=== PATIENT | female | born 1940 | race Caucasian/White ===

== ENCOUNTER → 2016-04-04 | Outpatient (CLI) | payer MEDICARE, OTHER ==
[~2016-04-04] MED LIST: BP MED; CITA-48 PO; LEVO137T2 PO; MELO15TA2 PO; OMEP20TA39 PO; VITA10004 PO; ZOCO80TA PO
[2016-04-04 13:26] LABS: BLOOD GAS BASE EXCESS 2.4 mmol/L (-2-2); BLOOD GAS HCO3 27 mmol/L (22-26); BLOOD GAS O2 HGB SATURATION 92 % (90-100); BLOOD GAS OXYGEN CONTENT 16.6 Vol % (12.0-20.0); BLOOD GAS PCO2 41 mmHg (38-42); BLOOD GAS PO2 83 mmHg (61-120); BLOOD GAS TOTAL HGB 12.8 G/DL (12.0-16.0); CRITICAL VALUE NO; DRAW SITE RT RADIAL; FIO2 21 %; NUMBER OF ARTERIAL PUNCTURES 1; STAT NO; TEMP CORR TO 98.6; ULNAR PULSE PRESENT
--- NOTE | 2016-04-06 09:04 | RSPPFT ---
DATE OF PROCEDURE: 04/04/16 COMMENTS: Spirometry shows FVC of 2.1 at 39% of predicted, FEV1 of 0.9 at 40%, FEV1/FVC ratio is normal. Flow is decreased at FEF 25, FEF 50, FEF 75 and FEF 25-75. There is no significant response after acutely inhaled bronchodilator treatment. Lung volumes show residual volume is increased. TLC is normal. Diffusion capacity is markedly decreased. Flow volume loop indicates small airways obstruction. Room air arterial blood gases show pH of 7.42, PCO2 of 41, PO2 of 83, BiCarb of 27 and O2 Saturation at 92%. IMPRESSION: 1. Moderately severe obstructive lung disease mainly in the "small airways". 2. No response after bronchodilator treatment. 3. Lung volumes show mild hyperinflation. 4. Diffusion capacity is decreased. 5. Blood gases show normal oxygenation on room air.
== END ==
LOC: HRSP 12:33
PROVIDERS: ATTEND Specialist
DX: J44.9 Chronic obstructive pulmonary disease, unspecified (principal)
CPT/HCPCS: 36600; 82805; 94060; 94726; 94729

== ENCOUNTER 2017-01-03 15:28 | Observation (INO) | payer MEDICARE, OTHER ==
[~2017-01-03] VITALS: Ht 149.9 cm; Wt 75.4 kg
[2017-01-03] VITALS (10 sets, daily range): BP systolic 112–148; BP diastolic 58–85; PULSE 99–132; RESP 16–24; TEMP 97–98.7; O2SAT 91–98
[2017-01-03] MEDS ORDERED: SODIUM CHLORIDE 0.9% FLUSH 10 ML FLUSH IVF PRN (16:00)
[2017-01-03] MEDS ORDERED: RESP: ALBUTEROL 2.5 MG/IPRATROPIUM 0.5 MG NEB (SCH) NEB ONE (16:00)
[2017-01-03 16:30] LABS: AUTOMATED NEUTROPHIL # 6.8 TH/MM3 (1.8-7.7); BASOPHIL # 0.2 TH/MM3 (0-0.2); EOSINOPHIL # 0.1 TH/MM3 (0-0.4); EOSINOPHIL % 1.7 % (0.0-4.0); HEMATOCRIT 37.5 % (35.0-46.0); LYMPH % 8.6 % (9.0-44.0); LYMPHOCYTE # 0.7 TH/MM3 (1.0-4.8); MEAN CELL VOLUME 92.2 FL (80.0-100.0); MEAN CORPUSCULAR HGB CONC 32.5 % (32.0-36.0); NEUT % 83.7 % (16.0-70.0); PLATELET COUNT 223 TH/MM3 (150-450); RED BLOOD COUNT 4.06 MIL/MM3 (4.00-5.30); RED CELL DISTRIBUTION WIDTH 14.7 % (11.6-17.2); WHITE BLOOD COUNT 8.1 TH/MM3 (4.0-11.0)
[2017-01-03 16:37] LABS: HEMO FLAGS DIFF FINAL
[2017-01-03 16:38] LABS: CHLORIDE 100 MEQ/L (98-107); POTASSIUM 3.9 MEQ/L (3.5-5.1); SODIUM (NA) 135 MEQ/L (136-145)
[2017-01-03 16:42] LABS: ANION GAP 7 MEQ/L (5-15); BICARBONATE 28.5 MEQ/L (21.0-32.0); BLOOD UREA NITROGEN 18 MG/DL (7-18); MAGNESIUM 1.8 MG/DL (1.5-2.5)
[2017-01-03 16:45] LABS: ALT (GPT) 21 U/L (10-53); APTT (PATIENT) 24.6 SEC (24.3-30.1); AST (GOT) 28 U/L (15-37); GLOMERULAR FILTRATION RATE 48 ML/MIN (>89); PROTHROMBIN TIME - PATIENT 10.5 SEC (9.8-11.6)
[2017-01-03 16:46] LABS: TOTAL BILIRUBIN ADULT 0.4 MG/DL (0.2-1.0)
[2017-01-03 16:48] LABS: ALKALINE PHOSPHATASE 80 U/L (45-117); CREATINE KINASE 119 U/L (26-192)
[2017-01-03] MEDS ORDERED: DILT120C50 PO (16:56)
[2017-01-03] MEDS ORDERED: CITA40TA4 PO (16:56)
[2017-01-03] MEDS ORDERED: LEVO100T5 PO (16:56)
[2017-01-03] MEDS ORDERED: LISI10TA PO (16:56)
[2017-01-03] MEDS ORDERED: MELO15TA20 PO (16:56)
[2017-01-03] MEDS ORDERED: OMEP20TA93 PO (16:56)
[2017-01-03] MEDS ORDERED: VENTAER INH (16:56)
[2017-01-03] MEDS ORDERED: LEVO500T8 PO (16:56)
[2017-01-03] MEDS ORDERED: ZOCO80TA PO (16:56)
[2017-01-03] MEDS ORDERED: SYMB160A INH (16:56)
[2017-01-03] MEDS ORDERED: TRAZ100T10 PO (16:56)
[2017-01-03] MEDS ORDERED: IOHEXOL 350 MG/ML 10 ML VIAL (for RAD DIAG) IVCONTRAST ONE (17:09)
--- NOTE | 2017-01-03 17:19 | RADRPT ---
EXAM DATE/TIME: 01/03/2017 16:58 [facility] COMPARISON: No previous studies available for comparison. INDICATIONS : Short of breath. Evaluate for embolism. IV CONTRAST: 65 cc Omnipaque 350 (iohexol) IV RADIATION DOSE: 15.84 CTDIvol (mGy) MEDICAL HISTORY : Hypertension. Chronic obstructive pulmonary disease. Diabetes. SURGICAL HISTORY : Appendectomy. Cholecystectomy. ENCOUNTER: Initial ACUITY: 2 days PAIN SCALE: 0/10 LOCATION: chest TECHNIQUE: Volumetric scanning of the chest was performed using a pulmonary embolism protocol MIP images were re constructed. Using automated exposure control and adjustment of the mA and/or kV according to patien t size, radiation dose was kept as low as reasonably achievable to obtain optimal diagnostic quality images. DICOM format image data is available electronically for review and comparison. Follow-up recommendations for detected pulmonary nodules are based at a minimum on nodule size and pa tient risk factors according to Fleischner Society Guidelines. FINDINGS: PULMONARY ARTERIES: No filling defects are seen in the pulmonary arteries through the segmental level. LUNGS: There is no consolidation or pneumothorax . No concerning pulmonary nodule is visualized. PLEURAE: There is no pleural thickening or pleural effusion. MEDIASTINUM: There is good visualization of the great vessels of the middle mediastinum. No evidence of mediastin al or hilar adenopathy/mass. MUSCULOSKELETAL: Within normal limits for patient age. MISCELLANEOUS: The visualized upper abdominal organs demonstrate no acute abnormality. CONCLUSION: Normal examination. Extensive calcifications in the hilar regions bilaterally and of the tracheobronc hial tree Omar Hameed MD on January 03, 2017 at 17:16 Board Certified Radiologist. This report was verified electronically.
--- NOTE | 2017-01-03 17:48 | RADRPT ---
EXAM DATE/TIME: 01/03/2017 16:53 [facility] COMPARISON: No previous studies available for comparison. INDICATIONS : Cough and short of breath for several days. MEDICAL HISTORY : Hypertension. Chronic obstructive pulmonary disease. Gastroesophageal reflux disease. Rheumatoid arthritis. SURGICAL HISTORY : Appendectomy. Cholecystectomy. ENCOUNTER: Initial ACUITY: 3 days PAIN SCORE: 2/10 LOCATION: Bilateral chest FINDINGS: A single view of the chest demonstrates the lungs to be symmetrically aerated without evidence of mas s, infiltrate or effusion. The cardiomediastinal contours are unremarkable. Osseous structures are intact. CONCLUSION: Normal examination. Mild interstitial prominence throughout the lungs. Omar Hameed MD on January 03, 2017 at 17:46 Board Certified Radiologist. This report was verified electronically.
[2017-01-03] MEDS ORDERED: PRED5TAB PO (17:51)
[2017-01-03] MEDS ORDERED: predniSONE 20 MG TAB PO ONE (18:15)
--- NOTE | 2017-01-03 18:24 | PD ---
HPI Chief Complaint: Respiratory Symptoms Time Seen by Provider: 15:43 Travel History International Travel<30 days: No Contact w/Intl Traveler<30days: No Traveled to known affect area: No History of Present Illness HPI Patient is a 76 year old female presents to the ER for evaluation of SOB. Has a history of COPD and is not on home oxygen. She is taking prednisone 5mg PO daily at baseline and her PCP increased it to 20mg today and started her on levaquin. She states for the past few days she is SOB and has dry cough. No fever, no chest pain. Has been taking inhaler without relief. States took the first dose of levaquin and prednisone today and still feeling SOB so came into ER. Symptoms moderate, over the past few days, gradually worsening. Context as above. PFSH Past Medical History Arthritis: Yes (RHEUMATOID) High Cholesterol: Yes COPD: Yes Diabetes: Yes Patient Takes Glucophage: Yes Diminished Hearing: No GERD: Yes Hypertension: Yes Respiratory: Yes (BRONCHIECTASIS) Immunizations Current: No Pneumonia: Yes Thyroid Disease: Yes Triglycerides - High: Yes Tetanus Vaccination: < 5 Years Influenza Vaccination: No PNEUMOCCOCAL Vaccine (Year): 2010 ?: Not Menopausal: Yes Tubal Ligation: Yes Past Surgical History Appendectomy: Yes Cholecystectomy: Yes Eye Surgery: Yes (cataracts) Gynecologic Surgery: Yes (breast lumpectomy bilat) Joint Replacement: Yes (THOMAS KNEE 01/23) Social History Alcohol Use: Yes (SOCIALLY-beer) Tobacco Use: No (quit in 1991 smoked 2 ppd) Substance Use: No Allergies-Medications (Allergen,Severity, Reaction): Coded Allergies: penicillin G (Unverified Allergy, Unknown, rash, 09/27/16) Reported Meds & Prescriptions Reported Meds & Active Scripts Active Reported Prednisone 5 Mg Tab 5 Mg PO DAILY Ventolin Hfa 18 GM Inh (Albuterol Sulfate) 90 Mcg/Act Aer 2 Puff INH Q4-6H PRN Symbicort Inh (Budesonide/Formoterol Fumarate) 160-4.5 Mcg/Act Aero 2 Puff INH Q12HR Citalopram (Citalopram Hydrobromide) 40 Mg Tab 40 Mg PO DAILY Meloxicam 15 Mg Tab 15 Mg PO DAILY Omeprazole 20 Mg Tab 20 Mg PO DAILY Zocor (Simvastatin) Unknown Strength Tab Unknown Dose PO HS Lisinopril-Hctz 10-12.5 Mg Tab 1 Tab PO DAILY Levofloxacin 500 Mg Tablet 500 Mg PO DAILY Trazodone (Trazodone HCl) 100 Mg Tablet 100 Mg PO HS Levothyroxine (Levothyroxine Sodium) 100 Mcg Tab 100 Mcg PO DAILY Diltiazem CD 24 HR 120 Mg Caper 120 Mg PO DAILY Review of Systems Except as stated in HPI: all other systems reviewed are Neg Physical Exam Narrative GENERAL: WD/WN tripod position and SOB. SKIN: Warm and dry. HEAD: Atraumatic. Normocephalic. EYES: Pupils equal and round. No scleral icterus. No injection or drainage. ENT: No nasal bleeding or discharge. Mucous membranes pink and moist. Tm's clear bilaterally. NECK: Trachea midline. No JVD. CARDIOVASCULAR:Tachycardia with regular rhythm, 2+ bilaterally equal pulses in all four extremities. RESPIRATORY: No accessory muscle use. End expiratory wheezing, tachypneic, no retractions but is usin chest wall muscles.. Breath sounds equal bilaterally. GASTROINTESTINAL: Abdomen soft, non-tender, nondistended. Hepatic and splenic margins not palpable. MUSCULOSKELETAL: Extremities without clubbing, cyanosis, or edema. No obvious deformities. NEUROLOGICAL: Awake and alert. No obvious cranial nerve deficits. Motor grossly within normal limits. Five out of 5 muscle strength in the arms and legs. Normal speech. PSYCHIATRIC: Appropriate mood and affect; insight and judgment normal. Data Data Last Documented VS Vital Signs Date Time Temp Pulse Resp B/P (MAP) Pulse Ox O2 Delivery O2 Flow Rate FiO2 01/03/17 18:05 132 16 119/62 (81) 95 Room Air 01/03/17 18:00 2.00 01/03/17 16:00 98.6 Orders Orders Electrocardiogram (01/03/17 15:52) Ckmb (Isoenzyme) Profile (01/03/17 15:52) Complete Blood Count With Diff (01/03/17 15:52) Comprehensive Metabolic Panel (01/03/17 15:52) Magnesium (Mg) (01/03/17 15:52) Prothrombin Time / Inr (Pt) (01/03/17 15:52) Act Partial Throm Time (Ptt) (01/03/17 15:52) Troponin I (01/03/17 15:52) Chest, Single Ap (01/03/17 15:52) Ecg Monitoring (01/03/17 15:52) Iv Access Insert/Monitor (01/03/17 15:52) Oximetry (01/03/17 15:52) Oxygen Administration (01/03/17 15:52) Sodium Chloride 0.9% Flush (Ns Flush) (01/03/17 16:00) Resp Blood Gas Venous (01/03/17 ) Albuterol-Ipratropium Neb (Duoneb Neb) (01/03/17 16:00) Ct Pulmonary Angiogram (01/03/17 ) Blood Gas Venous (Vbg) (01/03/17 16:15) CKMB (01/03/17 16:15) CKMB% (01/03/17 16:15) Iohexol 350 Inj (Omnipaque 350 Inj) (01/03/17 17:09) Prednisone (Deltasone) (01/03/17 18:15) Admit Order (Ed Use Only) (01/03/17 ) Labs Laboratory Tests Test 01/03/17 16:15 White Blood Count 8.1 TH/MM3 Red Blood Count 4.06 MIL/MM3 Hemoglobin 12.2 GM/DL Hematocrit 37.5 % Mean Corpuscular Volume 92.2 FL Mean Corpuscular Hemoglobin 30.0 PG Mean Corpuscular Hemoglobin Concent 32.5 % Red Cell Distribution Width 14.7 % Platelet Count 223 TH/MM3 Mean Platelet Volume 8.1 FL Neutrophils (%) (Auto) 83.7 % Lymphocytes (%) (Auto) 8.6 % Monocytes (%) (Auto) 4.0 % Eosinophils (%) (Auto) 1.7 % Basophils (%) (Auto) 2.0 % Neutrophils # (Auto) 6.8 TH/MM3 Lymphocytes # (Auto) 0.7 TH/MM3 Monocytes # (Auto) 0.3 TH/MM3 Eosinophils # (Auto) 0.1 TH/MM3 Basophils # (Auto) 0.2 TH/MM3 CBC Comment DIFF FINAL Differential Comment Prothrombin Time 10.5 SEC Prothromb Time International Ratio 1.0 RATIO Activated Partial Thromboplast Time 24.6 SEC Blood Gas Puncture Site L Blood Gas Patient Temperature 98.6 Venous Blood pH 7.38 Venous Blood Partial Pressure CO2 52 mmHg Venous Blood Partial Pressure O2 37 mmHg Venous Blood HCO3 30 mmol/L Venous Blood Oxygen Saturation 62 % Venous Blood Oxygen Content 10.4 Vol % Venous Blood Base Excess 5.3 mmol/L Oxygen Delivery Device NASAL CANNULA Blood Gas Liter Flow 2 L/M Blood Urea Nitrogen 18 MG/DL Creatinine 1.10 MG/DL Random Glucose 100 MG/DL Total Protein 7.3 GM/DL Albumin 3.5 GM/DL Calcium Level 8.4 MG/DL Magnesium Level 1.8 MG/DL Alkaline Phosphatase 80 U/L Aspartate Amino Transf (AST/SGOT) 28 U/L Alanine Aminotransferase (ALT/SGPT) 21 U/L Total Bilirubin 0.4 MG/DL Sodium Level 135 MEQ/L Potassium Level 3.9 MEQ/L Chloride Level 100 MEQ/L Carbon Dioxide Level 28.5 MEQ/L Anion Gap 7 MEQ/L Estimat Glomerular Filtration Rate 48 ML/MIN Total Creatine Kinase 119 U/L Creatine Kinase MB 2.0 NG/ML Troponin I LESS THAN 0.02 NG/ML MDM Medical Decision Making Medical Screen Exam Complete: Yes Emergency Medical Condition: Yes Differential Diagnosis COPD exacerbation, PNA, PE, ACS unlikely. Narrative Course Roomed in ER, tachycardic on arrival, duoneb given as well as additional prednisone. Still tachycardic and tachypneic. CT PE negative. Sats in 92 on room air, feeling better but far too tachypneic and tachycardic for discharge. D/W Dr. rogel for admission who is agreeable. Diagnosis Primary Impression: COPD with exacerbation Admitting Information Admitting Physician Requests: Observation Condition: Stable Sundar Mortensen MD Jan 03, 2017 18:24
--- NOTE | 2017-01-03 18:27 | HHI.HP ---
[facility], Admission Diagnosis COPD exacerbation Diagnoses: (1) COPD with exacerbation Chief Complaint: cough and shortness of breath Travel History International Travel<30 Days: No Contact w/Intl Traveler <30 Da: No Traveled to Known Affected Are: No History of Present Illness 76 yrs old female with a PMHx of COPD, A-Fib, HLP presents to the ED at the request of her PCP for evaluation of worsening shortness of breath, difficulty breath and cough production x 2 days. She was seen earlier today by her PCP increase steroids to 40 mg and prescribed Levaquin 500 milligrams which patient took, however did not have any improvement of her symptoms. She denies any febrile episode. CT angiogram was negative for PE. During my exam, patient reported improvement of symptoms after treatment with Solu-Medrol in ED and she has no GI bleed Review of Systems Except as stated in HPI: all other systems reviewed are Neg Past Family Social History Past Medical History Arthritis: Yes (RHEUMATOID) High Cholesterol: Yes Diabetes: Yes GERD: Yes Hypertension: Yes Respiratory: Yes (BRONCHIECTASIS) Pneumonia: Yes Thyroid Disease: Yes Triglycerides - High: Yes Past Surgical History Appendectomy: Yes Cholecystectomy: Yes Eye Surgery: Yes (cataracts) Gynecologic Surgery: Yes (breast lumpectomy bilat) Joint Replacement: Yes (THOMAS KNEE 01/23) Reported Medications Prednisone 5 Mg Tab 5 Mg PO DAILY Ventolin Hfa 18 GM Inh (Albuterol Sulfate) 90 Mcg/Act Aer 2 Puff INH Q4-6H PRN Symbicort Inh (Budesonide/Formoterol Fumarate) 160-4.5 Mcg/Act Aero 2 Puff INH Q12HR Citalopram (Citalopram Hydrobromide) 40 Mg Tab 40 Mg PO DAILY Meloxicam 15 Mg Tab 15 Mg PO DAILY Omeprazole 20 Mg Tab 20 Mg PO DAILY Zocor (Simvastatin) Unknown Strength Tab Unknown Dose PO HS Lisinopril-Hctz 10-12.5 Mg Tab 1 Tab PO DAILY Levofloxacin 500 Mg Tablet 500 Mg PO DAILY Trazodone (Trazodone HCl) 100 Mg Tablet 100 Mg PO HS Levothyroxine (Levothyroxine Sodium) 100 Mcg Tab 100 Mcg PO DAILY Diltiazem CD 24 HR 120 Mg Caper 120 Mg PO DAILY Allergies: Coded Allergies: penicillin G (Unverified Allergy, Unknown, rash, 09/27/16) Social History Alcohol Use: No Tobacco Use: No Substance Use: No Physical Exam Vital Signs Vital Signs Date Time Temp Pulse Resp B/P (MAP) Pulse Ox O2 Delivery O2 Flow Rate FiO2 01/03/17 18:05 132 16 119/62 (81) 95 Room Air 01/03/17 18:00 120 16 96 Nasal Cannula 2.00 01/03/17 17:05 117 16 112/71 (85) 96 Nasal Cannula 2.00 01/03/17 16:20 95 Nasal Cannula 2.00 01/03/17 16:10 96 Nasal Cannula 2.00 01/03/17 16:00 98.6 99 18 148/85 (106) 91 Room Air 01/03/17 16:00 99 18 148/85 (106) 91 Room Air 01/03/17 15:57 112 18 91 Room Air 01/03/17 15:55 18 91 Room Air 01/03/17 15:38 98.6 121 24 130/73 (92) 91 Physical Exam GENERAL: This is a well-nourished, well-developed patient, in no apparent distress. SKIN: No rashes, ecchymoses or lesions. Cool and dry. HEAD: Atraumatic. Normocephalic. No temporal or scalp tenderness. EYES: Pupils equal round and reactive. Extraocular motions intact. No scleral icterus. No injection or drainage. ENT: Nose without bleeding, purulent drainage or septal hematoma. Throat without erythema, tonsillar hypertrophy or exudate. Uvula midline. Airway patent. NECK: Trachea midline. No JVD or lymphadenopathy. Supple, nontender, no meningeal signs. CARDIOVASCULAR: Regular rate and rhythm without murmurs, gallops, or rubs. RESPIRATORY: Clear to auscultation. Breath sounds equal bilaterally. + wheezes. GASTROINTESTINAL: Abdomen soft, non-tender, nondistended. No hepato-splenomegaly , or palpable masses. No guarding. MUSCULOSKELETAL: Extremities without clubbing, cyanosis, or edema. No joint tenderness, effusion, or edema noted. No calf tenderness. Negative Homans sign bilaterally. NEUROLOGICAL: Awake and alert. Cranial nerves II through XII intact. Motor and sensory grossly within normal limits. Five out of 5 muscle strength in all muscle groups. Normal speech. Laboratory Laboratory Tests Test 01/03/17 16:15 White Blood Count 8.1 Red Blood Count 4.06 Hemoglobin 12.2 Hematocrit 37.5 Mean Corpuscular Volume 92.2 Mean Corpuscular Hemoglobin 30.0 Mean Corpuscular Hemoglobin Concent 32.5 Red Cell Distribution Width 14.7 Platelet Count 223 Mean Platelet Volume 8.1 Neutrophils (%) (Auto) 83.7 Lymphocytes (%) (Auto) 8.6 Monocytes (%) (Auto) 4.0 Eosinophils (%) (Auto) 1.7 Basophils (%) (Auto) 2.0 Neutrophils # (Auto) 6.8 Lymphocytes # (Auto) 0.7 Monocytes # (Auto) 0.3 Eosinophils # (Auto) 0.1 Basophils # (Auto) 0.2 CBC Comment DIFF FINAL Differential Comment Prothrombin Time 10.5 Prothromb Time International Ratio 1.0 Activated Partial Thromboplast Time 24.6 Blood Gas Puncture Site L Blood Gas Patient Temperature 98.6 Venous Blood pH 7.38 Venous Blood Partial Pressure CO2 52 Venous Blood Partial Pressure O2 37 Venous Blood HCO3 30 Venous Blood Oxygen Saturation 62 Venous Blood Oxygen Content 10.4 Venous Blood Base Excess 5.3 Oxygen Delivery Device NASAL CANNULA Blood Gas Liter Flow 2 Blood Urea Nitrogen 18 Creatinine 1.10 Random Glucose 100 Total Protein 7.3 Albumin 3.5 Calcium Level 8.4 Magnesium Level 1.8 Alkaline Phosphatase 80 Aspartate Amino Transf (AST/SGOT) 28 Alanine Aminotransferase (ALT/SGPT) 21 Total Bilirubin 0.4 Sodium Level 135 Potassium Level 3.9 Chloride Level 100 Carbon Dioxide Level 28.5 Anion Gap 7 Estimat Glomerular Filtration Rate 48 Total Creatine Kinase 119 Creatine Kinase MB 2.0 Troponin I LESS THAN 0.02 Result Diagram: 01/03/17 1615 01/03/17 1615 Imaging Last Impressions Chest X-Ray 01/03/17 1552 Signed Impressions: Service Date/Time: Tuesday, January 03, 2017 16:53 - CONCLUSION: Normal examination. Mild interstitial prominence throughout the lungs. Omar Hameed MD CT Angiography 01/03/17 0000 Signed Impressions: Service Date/Time: Tuesday, January 03, 2017 16:58 - CONCLUSION: Normal examination. Extensive calcifications in the hilar regions bilaterally and of the tracheobronchial tree MD Nely Deleon VTE Risk Assessment Caprini VTE Risk Assessment: Mod/High Risk (score >= 2) Caprini Risk Assessment Model Point Value = 1 Point Value = 2 Point Value = 3 Point Value = 5 Age 41-60 Minor surgery BMI > 25 kg/m2 Swollen legs Varicose veins or History of unexplained or recurrent spontaneous Oral contraceptives or hormone replacement Sepsis (< 1 month) Serious lung disease, including pneumonia (< 1 month) Abnormal pulmonary function Acute myocardial infarction Congestive heart failure (< 1 month) History of inflammatory bowel disease Medical patient at bed rest Age 61-74 Arthroscopic surgery Major open surgery (> 45 min) Laparoscopic surgery (> 45 min) Malignancy Confined to bed (> 72 hours) Immobilizing plaster cast Central venous access Age >= 75 History of VTE Family history of VTE Factor V Leiden Prothrombin [id number] Lupus anticoagulant Anticardiolipin antibodies Elevated serum homocysteine Heparin-induced thrombocytopenia Other congenital or acquired thrombophilia Stroke (< 1 month) Elective arthroplasty Hip, pelvis, or leg fracture Acute spinal cord injury (< 1 month) Prophylaxis Regimen Total Risk Factor Score Risk Level Prophylaxis Regimen 0-1 Low Early ambulation 2 Moderate Order ONE of the following: *Sequential Compression Device (SCD) *Heparin 5000 units SQ BID 3-4 Higher Order ONE of the following medications: *Heparin 5000 units SQ TID *Enoxaparin/Lovenox 40 mg SQ daily (WT < 150 kg, CrCl > 30 mL/min) *Enoxaparin/Lovenox 30 mg SQ daily (WT < 150 kg, CrCl > 10-29 mL/min) *Enoxaparin/Lovenox 30 mg SQ BID (WT < 150 kg, CrCl > 30 mL/min) AND/OR *Sequential Compression Device (SCD) 5 or more Highest Order ONE of the following medications: *Heparin 5000 units SQ TID (Preferred with Epidurals) *Enoxaparin/Lovenox 40 mg SQ daily (WT < 150 kg, CrCl > 30 mL/min) *Enoxaparin/Lovenox 30 mg SQ daily (WT < 150 kg, CrCl > 10-29 mL/min) *Enoxaparin/Lovenox 30 mg SQ BID (WT < 150 kg, CrCl > 30 mL/min) AND *Sequential Compression Device (SCD) Assessment and Plan Problem List: (1) COPD with exacerbation ICD Code: J44.1 - Chronic obstructive pulmonary disease with (acute) exacerbation Assessment and Plan 76-year-old female with COPD exacerbation Start Solu-Medrol, DuoNeb scheduled and when necessary, Levaquin, Spiriva, Symbicort, Mucinex Maintain oxygen saturation above 92% History of atrial fibrillation, hypertension, GERD, anxiety, hyperlipidemia and other chronic medical conditions Resume outpatient medications DVT prophylaxis: Bilateral SCDs Code Status Full code Discussed Condition With Patient, ED physician Vladimir Dugan MD Jan 03, 2017 18:27
[2017-01-03] MEDS ORDERED: RESP: ALBUTEROL 2.5 MG/IPRATROPIUM 0.5 MG NEB (PRN) NEB (18:45)
[2017-01-03] MEDS ORDERED: SODIUM CHLORIDE 0.9% FLUSH 10 ML FLUSH IV FLUSH PRN (18:45)
[2017-01-03] MEDS: RESP: ALBUTEROL 2.5 MG/IPRATROPIUM 0.5 MG NEB (SCH) NEB (20:56)
[2017-01-03] MEDS ORDERED: traZODone HCL 100 MG TAB PO SCH (21:00)
[2017-01-03] MEDS: BUDESONIDE-FORMOTEROL 160/4.5 MCG INHALER INH SCH (22:38)
[2017-01-03] MEDS: SODIUM CHLORIDE 0.9% FLUSH 10 ML FLUSH IV FLUSH SCH (22:38)
[2017-01-03] MEDS: guaiFENesin E.R. 600 MG TAB PO SCH (22:38)
[2017-01-03] MEDS: methylPREDNISolone SOD SUCC 40 MG/1 ML VIAL IV PUSH SCH (22:40)
[2017-01-04] VITALS (7 sets, daily range): BP systolic 112–146; BP diastolic 49–72; PULSE 112–133; RESP 18–20; TEMP 96.1–97.7; O2SAT 95–97
[2017-01-04] MEDS ORDERED: BENZONATATE 100 MG CAP PO ONE (02:15)
[2017-01-04] MEDS: methylPREDNISolone SOD SUCC 40 MG/1 ML VIAL IV PUSH SCH ×2 (04:29→12:41)
[2017-01-04] MEDS ORDERED: LEVOTHYROXINE SODIUM 100 MCG TAB PO SCH (06:00)
[2017-01-04] MEDS: RESP: ALBUTEROL 2.5 MG/IPRATROPIUM 0.5 MG NEB (SCH) NEB ×2 (08:10→13:42)
[2017-01-04] MEDS ORDERED: MELOXICAM 15 MG TAB PO SCH (09:00)
[2017-01-04] MEDS ORDERED: LEVOFLOXACIN 500 MG TAB PO SCH (09:00)
[2017-01-04] MEDS ORDERED: CITALOPRAM HYDROBROMIDE 40 MG TAB PO SCH (09:00)
[2017-01-04] MEDS ORDERED: DILTIAZEM-CD 120 MG CAP ER PO SCH (09:00)
[2017-01-04] MEDS ORDERED: TIOTROPIUM BROMIDE 18 MCG INH INH SCH (09:00)
[2017-01-04] MEDS ORDERED: PANTOPRAZOLE SOD 20 MG DELAYED RELEASE TAB PO SCH (09:00)
[2017-01-04] MEDS: BUDESONIDE-FORMOTEROL 160/4.5 MCG INHALER INH SCH (09:32)
[2017-01-04] MEDS: guaiFENesin E.R. 600 MG TAB PO SCH (09:36)
[2017-01-04] MEDS: SODIUM CHLORIDE 0.9% FLUSH 10 ML FLUSH IV FLUSH SCH (09:37)
--- NOTE | 2017-01-04 09:54 | EKG ---
Date Performed: 01/03/2017 Time Performed: 16:01:38 PTAGE: 76 years EKG: ECTOPIC ATRIAL TACHYCARDIA NONSPECIFIC ST & T-WAVE ABNORMALITY ABNORMAL ECG PREVIOUS TRACING : 09/08/2015 21.58 DOCTOR: Omar Richardson Interpretating Date/Time 01/04/2017 09:53:21
[2017-01-04] MEDS ORDERED: ACETAMINOPHEN 325 MG TAB PO PRN (11:45)
--- NOTE | 2017-01-04 12:27 | HHI.PR ---
Subjective Remarks Follow-up COPD exacerbation 01/04/17-patient seen and examined; reports improvement of shortness of breath. patient is upset today because of a loss of a puppy Objective Vitals Vital Signs Date Time Temp Pulse Resp B/P (MAP) Pulse Ox O2 Delivery O2 Flow Rate FiO2 01/04/17 11:52 97.7 123 20 122/70 (87) 96 01/04/17 08:11 95 Nasal Cannula 3.00 01/04/17 07:50 96.6 133 20 146/72 (96) 97 01/04/17 04:24 112 01/04/17 00:00 96.1 126 18 112/49 (70) 97 01/03/17 20:57 97.0 114 18 136/61 (86) 98 01/03/17 20:56 98 Nasal Cannula 3.00 01/03/17 20:49 98.7 113 24 122/74 (90) 98 Nasal Cannula 2.00 01/03/17 20:12 120 20 98 Nasal Cannula 01/03/17 19:10 122 24 120/58 (78) 98 Nasal Cannula 01/03/17 18:05 132 16 119/62 (81) 95 Room Air 01/03/17 18:00 120 16 96 Nasal Cannula 2.00 01/03/17 17:05 117 16 112/71 (85) 96 Nasal Cannula 2.00 01/03/17 16:20 95 Nasal Cannula 2.00 01/03/17 16:10 96 Nasal Cannula 2.00 01/03/17 16:00 98.6 99 18 148/85 (106) 91 Room Air 01/03/17 16:00 99 18 148/85 (106) 91 Room Air 01/03/17 15:57 112 18 91 Room Air 01/03/17 15:55 18 91 Room Air 01/03/17 15:38 98.6 121 24 130/73 (92) 91 I/O 01/03/17 01/03/17 01/03/17 01/04/17 01/04/17 01/04/17 07:00 15:00 23:00 07:00 15:00 23:00 Intake Total 240 ml 480 ml Balance 240 ml 480 ml Intake Oral 240 ml 480 ml # Voids 1 3 Result Diagram: 01/03/17 1615 01/03/17 1615 Imaging Last Impressions Chest X-Ray 01/03/17 1552 Signed Impressions: Service Date/Time: Tuesday, January 03, 2017 16:53 - CONCLUSION: Normal examination. Mild interstitial prominence throughout the lungs. Omar Hameed MD CT Angiography 01/03/17 0000 Signed Impressions: Service Date/Time: Tuesday, January 03, 2017 16:58 - CONCLUSION: Normal examination. Extensive calcifications in the hilar regions bilaterally and of the tracheobronchial tree Omar Hameed MD Objective Remarks GENERAL: NAD SKIN: Warm and dry. HEAD: Normocephalic. EYES: No scleral icterus. No injection or drainage. NECK: Supple, trachea midline. No JVD or lymphadenopathy. CARDIOVASCULAR: Regular rate and rhythm without murmurs, gallops, or rubs. RESPIRATORY: Breath sounds equal bilaterally. No accessory muscle use.+exp wheezing GASTROINTESTINAL: Abdomen soft, non-tender, nondistended. MUSCULOSKELETAL: No cyanosis, or edema. BACK: Nontender without obvious deformity. No CVA tenderness. A/P Problem List: (1) COPD with exacerbation ICD Code: J44.1 - Chronic obstructive pulmonary disease with (acute) exacerbation (2) Hypoxemia ICD Code: R09.02 - Hypoxemia Assessment and Plan 76-year-old female with COPD exacerbation Improving Currently Solu-Medrol, DuoNeb scheduled and when necessary, Levaquin, Spiriva, Symbicort, Mucinex Start steroid by mouth Maintain oxygen saturation above 92% Perform walk test prior to discharge today Hypoxemia/Hypoxia Patient will be requiring home oxygen on discharge as other alternative measures were tried and were ineffective as patient failed respiratory walk test today 01/04/17 History of atrial fibrillation, hypertension, GERD, anxiety, hyperlipidemia and other chronic medical conditions Resume outpatient medications DVT prophylaxis: Bilateral SCDs Discharge Planning Discharge patient to home Condition on discharge: Improved Regular Diet as tolerated Ad Darline activity Rx written: see EMR Follow-up with primary care physician in 1 week Vladimir Dugan MD Jan 04, 2017 12:27
[2017-01-04] MEDS ORDERED: PRED20 PO (12:28)
[2017-01-04] MEDS ORDERED: OXYGENDME NAS.CANULA (15:30)
== END 2017-01-04 18:06 | disposition home or self-care (01) ==
LOC: PHED 15:28 → PHEDA 18:24 → PH3B 20:41
PROVIDERS: ADMIT Hospitalist; ATTEND Hospitalist
DX: J44.1 Chronic obstructive pulmonary disease with (acute) exacerbation (principal); R09.02 Hypoxemia; R00.0 Tachycardia, unspecified; I48.91 Unspecified atrial fibrillation; I10 Essential (primary) hypertension; E78.00 Pure hypercholesterolemia, unspecified; E11.9 Type 2 diabetes mellitus without complications; K21.9 Gastro-esophageal reflux disease without esophagitis; R94.31 Abnormal electrocardiogram [ECG] [EKG]; M06.9 Rheumatoid arthritis, unspecified; E07.9 Disorder of thyroid, unspecified; F41.9 Anxiety disorder, unspecified; Z79.899 Other long term (current) drug therapy; Z87.891 Personal history of nicotine dependence
CPT/HCPCS: 71010; 71275; 80053; 82550; 82552; 83735; 84484; 85025; 85610; 85730; 93005; 94150; 94620; 94640; 94664; 96374; 96376; 99285; G0378; J2920; J7512; Q9967; 82805

== ENCOUNTER → 2017-04-20 | Outpatient (CLI) | payer MEDICARE, BC ==
[~2017-04-20] MED LIST changes: -BP MED; -CITA-48 PO; +CITA40TA4 PO; +DILT120C50 PO; +LEVO100T5 PO; -LEVO137T2 PO; +LEVO500T8 PO; +LISI10TA PO; -MELO15TA2 PO; +MELO15TA20 PO; -OMEP20TA39 PO; +OMEP20TA93 PO; +OXYGENDME NAS.CANULA; +PRED20 PO; +PRED5TAB PO; +SYMB160A INH; +TRAZ100T10 PO; +VENTAER INH; -VITA10004 PO
== END ==
LOC: HRSP 11:36
PROVIDERS: ATTEND Specialist
DX: J44.9 Chronic obstructive pulmonary disease, unspecified (principal)
CPT/HCPCS: 94618

== ENCOUNTER 2018-02-04 15:40 | Inpatient (IN) ==
[2018-02-04] MEDS ORDERED: Sod Chloride 0.9% Inj 1,000 ML IV.SIG SCH (16:30)
--- NOTE | 2018-02-04 16:32 | ED ---
HPI General Chief Complaint: Shortness of Breath/Dyspnea Stated Complaint: C/P L Side/Fever/Chills Time Seen by Provider: 02/04/18 16:11 Source: patient Mode of arrival: ambulatory Limitations: no limitations History of Present Illness MD complaint: Reports fever Onset (ago): day(s) (3) Temperature Source: subjective Context: Reports on immunosuppressant(s) (History of COPD on home O2 at night. She uses nebulizer treatments as needed but has not used any lately.); Denies sick contacts Associated symptoms: Reports chills, headache, sore throat, cough, chest pain and shortness of breath Relieving factors: nothing Exacerbating factors: nothing Treatments prior to arrival fever: Reports other (She has increased her oxygen use at home.) Related Data Home Medications Medication Instructions Recorded Confirmed aspirin [Aspir-81] 81 mg PO DAILY 12/06/17 02/04/18 budesonide-formoterol [Symbicort] 2 puff INHALATION BID 12/06/17 02/04/18 citalopram 40 mg PO DAILY 12/06/17 02/04/18 diltiazem HCl 180 mg PO DAILY 12/06/17 02/04/18 hydrochlorothiazide 12.5 mg PO DAILY 12/06/17 02/04/18 hydrocodone-acetaminophen 1 tab PO BID 12/06/17 02/04/18 leflunomide 20 mg PO DAILY 12/06/17 02/04/18 levothyroxine 112 mcg PO DAILY 12/06/17 02/04/18 lovastatin 20 mg PO DAILY 12/06/17 02/04/18 omeprazole 20 mg PO DAILY 12/06/17 02/04/18 prednisone 5 mg PO DAILY 12/06/17 02/04/18 budesonide-formoterol [Symbicort] 2 puff INHALATION BID 02/04/18 02/04/18 Allergies Allergy/AdvReac Type Severity Reaction Status Date / Time penicillin G Allergy Unknown rash Verified 02/04/18 16:07 Review of Systems ROS: all other systems reviewed are negative [facility] Medical History Medical History Atrial fibrillation (Acute) COPD (chronic obstructive pulmonary disease) (Acute) Diabetes (Acute) GERD (gastroesophageal reflux disease) (Acute) High cholesterol (Acute) History of left heart catheterization (Acute) Hypothyroid (Acute) Rheumatoid arthritis (Acute) Surgical History Surgical History Hx of appendectomy (Acute) Hx of cholecystectomy (Acute) Social History Social History Substance History: No History of Abuse Second Hand Smoke Exposure: No Smoking Status: Former smoker Tobacco Type: Cigarettes How Often Do You Have a Drink Containing Alcohol: Never Recent Travel in [facility] within the Last 8 Weeks: No Recent Out of Country Travel within the Last 8 Weeks: No Immunization History Tetanus Immunization: Unsure Exam Const General: cooperative, healthy appearing, well developed and other (She does not look like she feels well) Orientation: alert, awake and oriented x3 HENMT Head: normal to inspection, normocephalic and atraumatic Mouth: moist mucous membranes Throat: posterior oropharynx normal Eyes Alignment and Position: alignment normal and position abnormal Conjunctivae: conjunctivae normal Sclera: sclerae normal EOM: EOM intact bilaterally Neck Neck: normal visual inspection, full ROM, no lymphadenopathy and supple Chest Chest: normal inspection of the chest Resp Effort & Inspection: normal respiratory effort and able to speak in complete sentences Auscultation: clear to auscultation bilaterally Cardio Rate: tachycardic Rhythm: regular rhythm GI Inspection: normal to inspection Palpation: soft Back/Spine/Pelvis Cervical Spine: cervical ROM normal Thoracic/Lumbar Spine: thoraco-lumbar ROM normal Skin General: no rashes or lesions noted, turgor normal and dry skin Neuro General: alert, awake, oriented x3, moves all extremities and CN's II-XI intact bilaterally Extrem General: normal to inspection and full ROM Psych Appearance: grossly normal Mental Status: mental status grossly normal Speech and Movement: speech and movement normal Mood: congruent mood Affect: normal affect Attitude: cooperative Thought Process: normal Thought Content: normal Judgment: judgment good Course Consultations Consultation #1: CJ for Dr. Glez will admit Time: 17:28 Initial Documented Vital Signs Temperature 98.5 F 02/04/18 16:04 Pulse Rate 126 H 02/04/18 16:04 Respiratory Rate 22 02/04/18 16:04 Blood Pressure 134/77 02/04/18 16:04 Pulse Oximetry 94 L 02/04/18 16:04 Last Documented Vital Signs Temperature 98.5 F 02/04/18 16:04 Pulse Rate 126 H 02/04/18 16:24 Respiratory Rate 22 02/04/18 16:04 Blood Pressure 134/77 02/04/18 16:04 Pulse Oximetry 94 L 02/04/18 16:24 Medical Decision Making MDM Narrative Medical decision making narrative: This patient presents with a chief complaint of "I think I have the flu." Onset of symptoms was about 3 days ago. She has not had her flu shot this year. Her physical exam is remarkable only for a supraventricular tachycardia. I will give her a liter of fluid. Septic workup including flu screen is in process. After seeing her chest x-ray, I ordered IV Rocephin and Zithromax. I have discussed admission to the hospital. She is begrudgingly agreeable. Flu screen is negative. Medical Screen Exam Complete: Yes Emergency Medical Condition: Yes Differential Diagnosis Differential Diagnosis: Differential diagnosis of fever includes but is not limited to viral illness, strep throat, otitis media, pneumonia, sepsis, UTI Lab Data Lab results reviewed: Yes I reviewed the patient's lab results. Result diagrams: 02/04/18 15:56 02/04/18 15:56 Lab Results 02/04/18 02/04/18 Range/Units 15:56 15:56 CBC w Diff Slide review pending WBC 11.4 H (4.0-11.0) th/mm3 RBC 3.87 L (4.00-5.30) mil/mm3 Hgb 11.6 (11.6-15.3) gm/dL Hct 37.7 (35.0-46.0) % MCV 97.5 (80.0-100.0) fL MCH 29.9 (27.0-34.0) pg MCHC 30.6 L (32.0-36.0) % RDW 14.9 (11.6-17.2) % Plt Count 350 (150-450) th/mm3 MPV 8.5 (7.0-11.0) fL Neut % (Auto) 88.6 H (16.0-70.0) % Lymph % (Auto) 3.4 L (9.0-44.0) % [place] % (Auto) 6.7 (0.0-8.0) % Eos % (Auto) 0.1 (0.0-4.0) % Baso % (Auto) 1.2 (0.0-2.0) % Neut # (Auto) 10.1 H (1.8-7.7) th/mm3 Lymph # (Auto) 0.4 L (1.0-4.8) th/mm3 [place] # (Auto) 0.8 (0.0-0.9) th/mm3 Eos # (Auto) 0.0 (0.0-0.4) th/mm3 Baso # (Auto) 0.1 (0.0-0.2) th/mm3 WBC Differential Manual diff final Seg Neuts % (Manual) 73 H (16-70) % Band Neuts % (Manual) 18 H (0-6) % Lymphocytes % (Manual) 3 L (9-44) % Monocytes % (Manual) 6 (0-8) % Abs Neuts (Manual) 10.4 H (1.8-7.7) th/mm3 Differential Comment . Toxic Granulation 1+ H (None) Platelet Estimate Normal (Normal) Platelet Morphology Normal (Normal) Sodium 135 L (136-145) meq/L Potassium 3.7 (3.5-5.1) meq/L Chloride 95 L (98-107) meq/L Carbon Dioxide 29.9 (21.0-32.0) meq/L Anion Gap 10 (5-15) meq/L BUN 17 (7-18) mg/dL Creatinine 1.20 H (0.50-1.00) mg/dL Estimated GFR 43 L (>89) mL/min Random Glucose 103 (74-106) mg/dL Calcium 8.3 L (8.5-10.1) mg/dL Total Bilirubin 0.8 (0.2-1.0) mg/dL AST 21 (15-37) U/L ALT 12 (10-53) U/L Alkaline Phosphatase 69 (45-117) U/L Troponin I 0.03 (0.02-0.05) ng/mL Total Protein 7.5 (6.4-8.2) g/dL Albumin 3.0 L (3.4-5.0) g/dL Imaging Data Attestation: I personally reviewed and interpreted this imaging study as follows : Radiologist's impression: Chest X-Ray 02/04/18 16:13 CONCLUSION: 1. Nodular infiltrate within the left mid lung field consistent with probable pneumonia. Clinical correlation is recommended. Follow-up chest x-ray after treatment would be helpful to confirm clearance of this finding as well as to rule out underlying pulmonary nodule/mass. 2. Cardiomegaly. Discharge Plan Discharge Disposition Patient Disposition: ED Admit(ED Internal Use Only) Discharge Order Discharge Orders: ED Use Only Admit Order (Routine); Ordered 02/04/18 Ordered By: Alessia Vasquez Discharge Details Diagnosis: Pneumonia Physicians Team ED Provider: Alessia Vasquez Primary Care Provider: Thomas Glez Rxs /Orders / Referrals /Forms Prescriptions: No Action diltiazem HCl 180 mg Capsule,Extended Release 24 Hr 180 mg PO DAILY RF: 0 citalopram 40 mg Tablet 40 mg PO DAILY RF: 0 prednisone 5 mg Tablet 5 mg PO DAILY RF: 0 hydrocodone-acetaminophen 10-325 mg Tablet 1 tab PO BID RF: 0 aspirin [Aspir-81] 81 mg Tablet,Delayed Release (Dr/Ec) 81 mg PO DAILY RF: 0 leflunomide 20 mg Tablet 20 mg PO DAILY RF: 0 lovastatin 20 mg Tablet 20 mg PO DAILY RF: 0 levothyroxine 112 mcg Tablet 112 mcg PO DAILY RF: 0 hydrochlorothiazide 12.5 mg Tablet 12.5 mg PO DAILY RF: 0 budesonide-formoterol [Symbicort] 160-4.5 mcg/actuation Hfa Aerosol Inhaler 2 puff INHALATION BID RF: 0 omeprazole 20 mg Tablet,Delayed Release (Dr/Ec) 20 mg PO DAILY RF: 0 budesonide-formoterol [Symbicort] 160-4.5 mcg/actuation Hfa Aerosol Inhaler 2 puff INHALATION BID RF: 0 Status ED Status: Pending Admission
[2018-02-04 16:36] LABS: Baso # (Auto) 0.1 th/mm3 (0.0-0.2); Baso % (Auto) 1.2 % (0.0-2.0); Eos % (Auto) 0.1 % (0.0-4.0); Hematocrit 37.7 % (35.0-46.0); Hemoglobin 11.6 gm/dL (11.6-15.3); Lymph # (Auto) 0.4 th/mm3 (1.0-4.8); Lymph % (Auto) 3.4 % (9.0-44.0); Mean Corpuscular Hemoglobin 29.9 pg (27.0-34.0); Mean Corpuscular Volume 97.5 fL (80.0-100.0); Mean Platelet Volume 8.5 fL (7.0-11.0); Mono # (Auto) 0.8 th/mm3 (0.0-0.9); Mono % (Auto) 6.7 % (0.0-8.0); Neut # (Auto) 10.1 th/mm3 (1.8-7.7); Neut % (Auto) 88.6 % (16.0-70.0); Platelet Count 350 th/mm3 (150-450); Red Blood Count 3.87 mil/mm3 (4.00-5.30); Red Cell Distribution Width 14.9 % (11.6-17.2); White Blood Count 11.4 th/mm3 (4.0-11.0)
[2018-02-04 16:37] LABS: Mean Corpuscular HGB Conc 30.6 % (32.0-36.0)
[2018-02-04 16:42] LABS: Chloride 95 meq/L (98-107); Potassium 3.7 meq/L (3.5-5.1); Sodium 135 meq/L (136-145)
[2018-02-04 16:45] LABS: Calcium 8.3 mg/dL (8.5-10.1)
[2018-02-04 16:46] LABS: Anion Gap 10 meq/L (5-15); Blood Urea Nitrogen 17 mg/dL (7-18); Carbon Dioxide 29.9 meq/L (21.0-32.0); Glucose,Random 103 mg/dL (74-106)
[2018-02-04 16:49] LABS: Alanine Aminotransferase 12 U/L (10-53); Aspartate Aminotransferase 21 U/L (15-37); Glomerular Filtration Rate 43 mL/min (>89)
--- NOTE | 2018-02-04 16:49 | XR ---
EXAM DATE: 02/04/2018 4:44 PM EST AGE/SEX: 77 years / Female INDICATIONS: Cough, short of breath. fever, chest pains CLINICAL DATA: This is the patient's initial encounter. Patient reports that signs and symptoms have been present for 1 day and indicates a pain score of 5/10. MEDICAL/SURGICAL HISTORY: . Chronic obstructive pulmonary disease. Hypercholesterolemia. Renal insufficiency. A-fib. Hypothyroid. GERD. Appendectomy. Cholecystectomy. Bilateral knee replacements. Cardiac cath. . Appendectomy. Cholecystectomy. Bilateral knee replacements. Cardiac cath. COMPARISON: [facility], CHEST SINGLE AP, 01/03/2017. . FINDINGS: There is nodular infiltrate within the left mid lung field consistent with probable pneumonia. Clinic al correlation is recommended. Follow-up chest x-ray after treatment would be helpful to confirm caitlin tesha of this finding as well as to rule out underlying pulmonary nodule/mass. The heart is enlarged. The pulmonary vascular pattern is normal. CONCLUSION: 1. Nodular infiltrate within the left mid lung field consistent with probable pneumonia. Clinical co rrelation is recommended. Follow-up chest x-ray after treatment would be helpful to confirm clearance of this finding as well as to rule out underlying pulmonary nodule/mass. 2. Cardiomegaly. Electronically signed by: Sundar Camp MD Board Certified Radiologist 02/04/2018 4:48 PM EST
[2018-02-04 16:51] LABS: Total Protein 7.5 g/dL (6.4-8.2)
[2018-02-04 16:52] LABS: Alkaline Phosphatase 69 U/L (45-117)
[2018-02-04 16:54] LABS: Troponin I 0.03 ng/mL (0.02-0.05)
[2018-02-04] MEDS ORDERED: Morphine Inj 4 MG/ML Vial IV.PUSH ONE (16:58)
[2018-02-04] MEDS ORDERED: Azithromycin Inj 500 MG in Sodium Chlor 0.9% Inj 250 ML IV.SIG SCH (17:00)
[2018-02-04 17:03] LABS: Lymphocytes 3 % (9-44); Monocytes 6 % (0-8)
[2018-02-04 17:04] LABS: Platelet Estimate Normal (Normal); Platelet Morphology Normal (Normal); Toxic Granulation 1+
[2018-02-04] MEDS: Budesonide-Formoterol 160/4.5 MCG 6 GM Inhaler INH SCH (20:51)
[2018-02-05] MEDS: Butalbital/APAP/Caff 50/325/40 MG Tablet PO PRN ×3 (05:08→17:28)
[2018-02-05] MEDS ORDERED: Influenza (Quadrivalent) Vaccine 0.5 ML Syringe IM ONE (06:00)
[2018-02-05 06:53] LABS: Baso % (Auto) 0.3 % (0.0-2.0); Eos % (Auto) 0.4 % (0.0-4.0); Hematocrit 27.7 % (35.0-46.0); Lymph # (Auto) 0.6 th/mm3 (1.0-4.8); Lymph % (Auto) 6.7 % (9.0-44.0); Mean Corpuscular HGB Conc 32.4 % (32.0-36.0); Mean Corpuscular Hemoglobin 31.5 pg (27.0-34.0); Mean Corpuscular Volume 97.2 fL (80.0-100.0); Mean Platelet Volume 8.1 fL (7.0-11.0); Mono # (Auto) 0.7 th/mm3 (0.0-0.9); Neut # (Auto) 8.1 th/mm3 (1.8-7.7); Neut % (Auto) 84.6 % (16.0-70.0); Platelet Count 259 th/mm3 (150-450); Red Blood Count 2.85 mil/mm3 (4.00-5.30); Red Cell Distribution Width 14.9 % (11.6-17.2); White Blood Count 9.4 th/mm3 (4.0-11.0)
[2018-02-05 07:01] LABS: Chloride 99 meq/L (98-107); Potassium 3.2 meq/L (3.5-5.1); Sodium 138 meq/L (136-145)
[2018-02-05 07:04] LABS: Calcium 8.1 mg/dL (8.5-10.1)
[2018-02-05 07:05] LABS: Albumin 2.5 g/dL (3.4-5.0); Anion Gap 7 meq/L (5-15); Blood Urea Nitrogen 17 mg/dL (7-18); Carbon Dioxide 32.2 meq/L (21.0-32.0); Glucose,Random 104 mg/dL (74-106)
[2018-02-05 07:08] LABS: Alanine Aminotransferase 10 U/L (10-53); Aspartate Aminotransferase 14 U/L (15-37); Glomerular Filtration Rate 59 mL/min (>89)
[2018-02-05 07:09] LABS: Total Protein 6.5 g/dL (6.4-8.2)
[2018-02-05 07:11] LABS: Alkaline Phosphatase 57 U/L (45-117)
[2018-02-05] MEDS: Pantoprazole Sodium 20 MG DR Tablet PO SCH (08:16)
[2018-02-05] MEDS: Levothyroxine 112 MCG Tablet PO SCH (08:16)
[2018-02-05] MEDS: Budesonide-Formoterol 160/4.5 MCG 6 GM Inhaler INH SCH ×2 (08:18→21:21)
[2018-02-05] MEDS ORDERED: LEFLUNOMIDE 20 MG PO SCH (09:00)
[2018-02-05] MEDS ORDERED: predniSONE 5 MG Tablet PO SCH (09:00)
[2018-02-05] MEDS ORDERED: dilTIAZem CD 180 MG Capsule PO SCH (09:00)
--- NOTE | 2018-02-05 10:02 | P.HPFP ---
History of Present Illness Primary Care Physician: Thomas Glez DO History of Present Illness: 77 year old female with history of COPD, on home oxygen at . Admits for complaints of increased SOB, and fever for past 3days requiring more use of her O2. She is followed by Pulmonary Dr Noyola and she voices she has seen him this past week. She voices she has had Prevnar PNA vaccine. - Diagnosis (1) Pneumonia (2) COPD (chronic obstructive pulmonary disease) (3) Hypothyroid (4) Depression (5) HLD (hyperlipidemia) Inpatient Certification: I certify that the inpatient services were ordered in accordance with Medicare regulations governing the order. This includes certification that hospital inpatient services are reasonable and necessary and in the case of services not specified as inpatient-only under 42 CFR 419.22(n), that they are appropriately provided as inpatient services in accordance to with the 2-midnight benchmark under 43 CFR 412.3(e) Estimated Total Length of Stay (Days): 5 Plans for Post Hospital Care: Home [facility] - History History Provided By: Patient - Medical History Medical History: Medical History (Last Reviewed 02/04/18 @ 16:30 by Alessia Vasquez) Atrial fibrillation COPD (chronic obstructive pulmonary disease) Diabetes GERD (gastroesophageal reflux disease) High cholesterol History of left heart catheterization Hypothyroid Rheumatoid arthritis - Surgical History Surgical History: Surgical History (Last Reviewed 02/04/18 @ 16:30 by Alessia Vasquez) Hx of appendectomy Hx of cholecystectomy - Tobacco History Second Hand Smoke Exposure: No Tobacco Use In Past 30 Days: No Smoking Status: Former smoker Tobacco Type: Cigarettes - Alcohol History How Often Do You Have a Drink Containing Alcohol: Monthly or less - Substance Use History Substance History: No History of Abuse - Travel History Recent Travel in the [place] Within the Last 8 Weeks: No Recent Travel Out of the Country Within the Last 8 Weeks: No - Immunization History Tetanus Immunization: Unsure Hx Influenza Vaccine This Season: No Medications and Allergies Active Medications: Active Medications Acetaminophen/Butalbital/Caffeine (Fioricet 50-325-40) 1 tab PO Q6H PRN PRN Reason: HEADACHE Last Admin: 02/05/18 05:08 Dose: 1 tab Hydrocodone Bitart/Acetaminophen ([place] 10/325) 1 tab PO BID MANN Last Admin: 02/05/18 08:15 Dose: 1 tab Albuterol (Albuterol Neb (Mann)) 2.5 mg NEB Q4HR NEB [facility] Last Admin: 02/05/18 07:29 Dose: 2.5 mg Aspirin (Ecotrin) 81 mg PO DAILY [facility] Last Admin: 02/05/18 08:16 Dose: 81 mg Budesonide/Formoterol Fumarate (Symbicort 160/4.5 Mcg Inh) 2 puff INH BID [facility] Last Admin: 02/05/18 08:18 Dose: 2 puff Citalopram Hydrobromide (Celexa) 40 mg PO DAILY [facility] Last Admin: 02/05/18 08:16 Dose: 40 mg Diltiazem HCl (Cardizem Cd 24hr) 180 mg PO DAILY [facility] Last Admin: 02/05/18 08:15 Dose: 180 mg Hydrochlorothiazide (Microzide) 12.5 mg PO DAILY [facility] Last Admin: 02/05/18 08:16 Dose: 12.5 mg Ceftriaxone Sodium 1,000 mg/ (Sodium Chloride) 100 mls @ 200 mls/hr IV.SIG Q12H [facility] Last Infusion: 02/05/18 05:15 Dose: Infused Azithromycin 500 mg/ Sodium (Chloride) 250 mls @ 250 mls/hr IV.SIG Q24H [facility] Levothyroxine Sodium (Synthroid) 112 mcg PO DAILY [facility] Last Admin: 02/05/18 08:16 Dose: 112 mcg Pantoprazole Sodium (Protonix) 20 mg PO DAILY [facility] Last Admin: 02/05/18 08:16 Dose: 20 mg Patient Own Medication- Leflunomide (Arava) 20mg Tablet 0 each PO DAILY [facility] Pravastatin Sodium (Pravachol) 20 mg PO DAILY [facility] Last Admin: 02/05/18 08:16 Dose: 20 mg Prednisone (Deltasone) 5 mg PO DAILY [facility] Last Admin: 02/05/18 08:16 Dose: 5 mg Allergies Allergy/AdvReac Type Severity Reaction Status Date / Time penicillin G Allergy Unknown rash Verified 02/04/18 16:07 Home Medications Medication Instructions Recorded Confirmed Type aspirin [Aspir-81] 81 mg PO DAILY 12/06/17 02/04/18 History budesonide-formoterol [Symbicort] 2 puff INHALATION BID 12/06/17 02/04/18 History citalopram 40 mg PO DAILY 12/06/17 02/04/18 History diltiazem HCl 180 mg PO DAILY 12/06/17 02/04/18 History hydrochlorothiazide 12.5 mg PO DAILY 12/06/17 02/04/18 History hydrocodone-acetaminophen 1 tab PO BID 12/06/17 02/04/18 History leflunomide 20 mg PO DAILY 12/06/17 02/04/18 History levothyroxine 112 mcg PO DAILY 12/06/17 02/04/18 History lovastatin 20 mg PO DAILY 12/06/17 02/04/18 History omeprazole 20 mg PO DAILY 12/06/17 02/04/18 History prednisone 5 mg PO DAILY 12/06/17 02/04/18 History Exam Vital signs: Vital Signs 02/04/18 16:04 02/04/18 16:24 02/04/18 18:17 Temperature 98.5 F Pulse Rate 126 H 126 H 110 H Respiratory Rate 22 18 Blood Pressure 134/77 120/64 Pulse Oximetry 94 L 94 L 97 02/04/18 19:35 02/04/18 20:00 02/04/18 23:37 Temperature 97.2 F L Pulse Rate 119 H 124 H 117 H Respiratory Rate 22 18 24 Blood Pressure 107/56 L Pulse Oximetry 97 95 02/05/18 00:00 02/05/18 04:21 02/05/18 07:32 Temperature 98.5 F Pulse Rate 122 H 117 H 110 H Respiratory Rate 18 22 14 Blood Pressure 118/54 L Pulse Oximetry 96 96 02/05/18 08:00 02/05/18 08:20 Temperature 98.2 F Pulse Rate 93 H Respiratory Rate 16 Blood Pressure 129/59 L Pulse Oximetry 91 L 96 Intake & Output 02/04/18 02/05/18 02/05/18 18:59 06:59 18:59 Intake Total 1350 / 1350 190 / 190 Output Total 200 / 200 Balance 1350 / 1350 -10 / -10 Weight 79.5 kg 80.5 kg Intake: IV 1350 / 1350 100 / 100 Azithromycin Inj 500 MG In NS 250 / 250 Inj 250 ML @ 250 mls/hr IV.SIG Q24H [facility]ANN Rx#:[id number] NS Inj 1,000 ML @ 1000 mls/hr 1000 / 1000 IV.SIG BOLUS MANN Rx#:[id number] Rocephin Inj 1,000 MG In NS Inj 100 / 100 100 ML @ 200 mls/hr IV.SIG Q12H MANN Rx#:[id number] Rocephin Inj 2,000 MG In NS Inj 100 / 100 100 ML @ 200 mls/hr IV.SIG ONCE ONE Rx#:[id number] Oral 90 / 90 Output: Urine 200 / 200 Other: # Voids 1 Date of Last Bowel Movement 02/01/18 02/01/18 Weight On Admission 79.5 kg - Constitutional no acute distress - Routine HEENT Exam Eye: Present: PERRL ENT: Present: mucous membranes moist - Routine Respiratory Exam Present: accessory muscle use, wheezes, diminished air movement - Routine Cardiovascular Exam Present: S1, S2 - Routine Abdominal Exam Present: soft, normoactive bowel sounds - Routine Skin Exam Present: dry, warm - Routine Neurological Exam Present: alert, oriented X3 Results - Labs Result diagrams: 02/05/18 06:05 02/05/18 06:05 Abnormal lab results 02/04/18 02/04/18 02/05/18 Range/Units 15:56 15:56 06:05 WBC 11.4 H (4.0-11.0) th/mm3 RBC 3.87 L 2.85 L (4.00-5.30) mil/mm3 Hgb 9.0 L D (11.6-15.3) gm/dL Hct 27.7 L (35.0-46.0) % MCHC 30.6 L (32.0-36.0) % Neut % (Auto) 88.6 H 84.6 H (16.0-70.0) % Lymph % (Auto) 3.4 L 6.7 L (9.0-44.0) % Neut # (Auto) 10.1 H 8.1 H (1.8-7.7) th/mm3 Lymph # (Auto) 0.4 L 0.6 L (1.0-4.8) th/mm3 Seg Neuts % (Manual) 73 H (16-70) % Band Neuts % (Manual) 18 H (0-6) % Lymphocytes % (Manual) 3 L (9-44) % Abs Neuts (Manual) 10.4 H (1.8-7.7) th/mm3 Toxic Granulation 1+ H (None) Sodium 135 L (136-145) meq/L Potassium (3.5-5.1) meq/L Chloride 95 L (98-107) meq/L Carbon Dioxide (21.0-32.0) meq/L Creatinine 1.20 H (0.50-1.00) mg/dL Estimated GFR 43 L (>89) mL/min Calcium 8.3 L (8.5-10.1) mg/dL AST (15-37) U/L Albumin 3.0 L (3.4-5.0) g/dL 02/05/18 Range/Units 06:05 WBC (4.0-11.0) th/mm3 RBC (4.00-5.30) mil/mm3 Hgb (11.6-15.3) gm/dL Hct (35.0-46.0) % MCHC (32.0-36.0) % Neut % (Auto) (16.0-70.0) % Lymph % (Auto) (9.0-44.0) % Neut # (Auto) (1.8-7.7) th/mm3 Lymph # (Auto) (1.0-4.8) th/mm3 Seg Neuts % (Manual) (16-70) % Band Neuts % (Manual) (0-6) % Lymphocytes % (Manual) (9-44) % Abs Neuts (Manual) (1.8-7.7) th/mm3 Toxic Granulation (None) Sodium (136-145) meq/L Potassium 3.2 L (3.5-5.1) meq/L Chloride (98-107) meq/L Carbon Dioxide 32.2 H (21.0-32.0) meq/L Creatinine (0.50-1.00) mg/dL Estimated GFR 59 L (>89) mL/min Calcium 8.1 L (8.5-10.1) mg/dL AST 14 L (15-37) U/L Albumin 2.5 L (3.4-5.0) g/dL Short CBC 02/04/18 02/05/18 Range/Units 15:56 06:05 WBC 11.4 H 9.4 (4.0-11.0) th/mm3 Hgb 11.6 9.0 L D (11.6-15.3) gm/dL Hct 37.7 27.7 L (35.0-46.0) % Plt Count 350 259 (150-450) th/mm3 BMP 02/04/18 02/05/18 15:56 06:05 Sodium 135 L 138 Potassium 3.7 3.2 L Chloride 95 L 99 Carbon Dioxide 29.9 32.2 H BUN 17 17 Creatinine 1.20 H 0.92 Calcium 8.3 L 8.1 L Cardiac Enzymes 02/04/18 Range/Units 15:56 Troponin I 0.03 (0.02-0.05) ng/mL Liver Function 02/04/18 02/05/18 Range/Units 15:56 06:05 Total Bilirubin 0.8 0.5 (0.2-1.0) mg/dL AST 21 14 L (15-37) U/L ALT 12 10 (10-53) U/L Alkaline Phosphatase 69 57 (45-117) U/L Albumin 3.0 L 2.5 L (3.4-5.0) g/dL - Imaging Impressions Chest X-Ray 02/04/18 16:13 CONCLUSION: 1. Nodular infiltrate within the left mid lung field consistent with probable pneumonia. Clinical correlation is recommended. Follow-up chest x-ray after treatment would be helpful to confirm clearance of this finding as well as to rule out underlying pulmonary nodule/mass. 2. Cardiomegaly. Caprini VTE Risk Assessment Caprini VTE Risk Assessment: Moderate/High Risk (score >= 2) Caprini Risk Assessment Model: Point Value = 1 Point Value = 2 Point Value = 3 Point Value = 5 Age 41-60 Minor surgery BMI > 25 kg/m2 Swollen legs Varicose veins or History of unexplained or recurrent spontaneous Oral contraceptives or hormone replacement Sepsis (< 1 month) Serious lung disease, including pneumonia (< 1 month) Abnormal pulmonary function Acute myocardial infarction Congestive heart failure (< 1 month) History of inflammatory bowel disease Medical patient at bed rest Age 61-74 Arthroscopic surgery Major open surgery (> 45 min) Laparoscopic surgery (> 45 min) Malignancy Confined to bed (> 72 hours) Immobilizing plaster cast Central venous access Age >= 75 History of VTE Family history of VTE Factor V Leiden Prothrombin [id number] Lupus anticoagulant Anticardiolipin antibodies Elevated serum homocysteine Heparin-induced thrombocytopenia Other congenital or acquired thrombophilia Stroke (< 1 month) Elective arthroplasty Hip, pelvis, or leg fracture Acute spinal cord injury (< 1 month) Prophylaxis Regimen: Total Risk Factor Score Risk Level Prophylaxis Regimen 0-1 Low Early ambulation 2 Moderate Order ONE of the following: *Sequential Compression Device (SCD) *Heparin 5000 units SQ BID 3-4 Higher Order ONE of the following medications: *Heparin 5000 units SQ TID *Enoxaparin/Lovenox 40 mg SQ daily (WT < 150 kg, CrCl > 30 mL/min) *Enoxaparin/Lovenox 30 mg SQ daily (WT < 150 kg, CrCl > 10-29 mL/min) *Enoxaparin/Lovenox 30 mg SQ BID (WT < 150 kg, CrCl > 30 mL/min) AND/OR *Sequential Compression Device (SCD) 5 or more Highest Order ONE of the following medications: *Heparin 5000 units SQ TID (Preferred with Epidurals) *Enoxaparin/Lovenox 40 mg SQ daily (WT < 150 kg, CrCl > 30 mL/min) *Enoxaparin/Lovenox 30 mg SQ daily (WT < 150 kg, CrCl > 10-29 mL/min) *Enoxaparin/Lovenox 30 mg SQ BID (WT < 150 kg, CrCl > 30 mL/min) AND *Sequential Compression Device (SCD) Assessment and Plan - Assessment (1) Pneumonia Code(s): J18.9 - Pneumonia, unspecified organism Status: Acute Plan: Cont iv antibiotics, Bronchodilators, oxygen support Pulm consult (2) COPD (chronic obstructive pulmonary disease) Code(s): J44.9 - Chronic obstructive pulmonary disease, unspecified Status: Acute Plan: Pulm consult, Bronchodilators, oxygen support. (3) Hypothyroid Code(s): E03.9 - Hypothyroidism, unspecified Status: Acute Plan: Cont home med's (4) Depression Code(s): F32.9 - Major depressive disorder, single episode, unspecified Status : Acute Plan: Mood stable, cont home medication. (5) HLD (hyperlipidemia) Code(s): E78.5 - Hyperlipidemia, unspecified Status: Acute Plan: Cont home medication H&P: Quality - VTE Deep Vein Thrombosis/Pulmonary Embolism Present on Admission: No (1) Pneumonia Qualifiers: Pneumonia type: due to unspecified organism Laterality: left Lung location: unspecified part of lung Qualified Code(s): J18.9 - Pneumonia, unspecified organism
--- NOTE | 2018-02-05 11:53 | ECG ---
Date Performed: 02/04/2018 Time Performed: 15:54:10 PTAGE: 77 years EKG: ECTOPIC ATRIAL TACHYCARDIA ST DEVIATION AND MODERATE T-WAVE ABNORMALITY, CONSIDER INFEROLAT ERAL ISCHEMIA ABNORMAL ECG PREVIOUS TRACING : 12/11/2017 09.19 Since the previous tracing, no significant change noted DOCTOR: Braulio Andersen Interpretating Date/Time 02/05/2018 11:51:51
--- NOTE | 2018-02-05 14:14 | MB ---
cc: Brennen Hutton MD DATE: 02/05/2018 REASON FOR CONSULTATION: Pneumonia. HISTORY OF PRESENT ILLNESS: Mrs. Noyola is a 77-year-old female with a known history of COPD of severe degree and chronic respiratory failure, on home oxygen therapy, who states for about 3 days prior to coming to the emergency room, she felt increasingly short of breath, fever, chill, cough with expectoration of small amount of whitish yellowish sputum. She denies history of hemoptysis, TB or previous industrial exposure. PAST MEDICAL HISTORY: 1. COPD. 2. Chronic respiratory failure, on oxygen therapy. 3. Atrial fibrillation. 4. Diabetes mellitus. 5. Acid reflux disease. 6. Hyperlipidemia. 7. Hypothyroidism, on replacement therapy. 8. Rheumatoid arthritis. PAST SURGICAL HISTORY: She did have appendectomy and cholecystectomy in the past. SOCIAL HISTORY: Remote smoking history, has not smoked for many years. Does not drink any alcohol, does not use drugs. CURRENT MEDICATIONS: 1. Nebulized albuterol and ipratropium. 2. Zithromax. 3. Ceftriaxone. 4. Diltiazem. 5. Microzide 6. Synthroid. 7. Pravachol. ALLERGIES: PENICILLIN. REVIEW OF SYSTEMS: A 12-point review of systems is as per HPI and past history. Otherwise negative. PHYSICAL EXAMINATION: GENERAL: The patient is alert, stating she is feeling better since her hospitalization. VITAL SIGNS: Her temperature is 98, her pulse is 90, respirations are 16, and her blood pressure is 134/64. Oxygen saturation 94% on 2 liters oxygen via nasal cannula. HEENT: Unremarkable. Eyes without icterus. NECK: No adenopathy. No thyroid enlargement. Central trachea. CHEST: Scattered rhonchi and wheeze bilaterally. CARDIAC: PMI not appreciated or irregularity noted. ABDOMEN: Lax, bowel sounds audible. EXTREMITIES: No clubbing, cyanosis or edema. SKIN: Normal. LYMPHATICS: No lymphadenopathy. RADIOGRAPHIC STUDIES: Chest x-ray: Left mid lung infiltrate with nodularity, pneumonia suspect. LABORATORY DATA: White count 9.4, hemoglobin 9, hematocrit 27, platelets 259,000. Sodium 138, potassium 3.2, BUN 17, creatinine 0.9. IMPRESSION: 1. Pneumonia. 2. Chronic obstructive pulmonary disease exacerbation. 3. Hypoxic respiratory failure. 4. Atrial fibrillation. 5. Hypothyroidism. 6. Hypertension. 7. Hyperlipidemia. PLAN: The patient will be maintained on oxygen therapy as needed. Antibiotic therapy has been initiated and appropriately so. The patient seems to be responding favorably. Her chest x-ray will be followed. Should the nodularity and infiltrate persist, a CT scan will be done. I do thank you for asking me to participate in Mrs. Noyola's care. Sincerely, Brennen Hutton MD WWW/floridalma , 01:41 PM , 01:59 PM
--- NOTE | 2018-02-05 17:05 | P.PNIM ---
Subjective Interval history: Patient has been tachycardic since this morning, sounds regular, no chest pain, palpitations. More short of breath and this morning. Her art conservator is Dr. Treviño. Physical Exam Vital signs: Last Vital Signs Temp 98.4 F 02/05/18 15:57 Pulse 130 H 02/05/18 15:57 Resp 18 02/05/18 15:57 BP 124/56 L 02/05/18 15:57 Pulse Ox 94 L 02/05/18 15:57 Intake & Output 02/03/18 02/04/18 02/05/18 02/06/18 06:59 06:59 06:59 06:59 Intake Total 1540 / 1540 Output Total 200 / 200 Balance 1340 / 1340 Weight 80.5 kg Narrative: In mild respiratory distress Tachycardic, regular, no murmurs Diffuse wheezing, no crackles Abdomen soft nontender No edema Alert awake oriented x3, no focal deficits. Results Labs CBC & Chem 7: 02/05/18 06:05 02/05/18 06:05 Labs: Microbiology 02/04/18 15:50 Blood - Peripheral Aerobic Blood Culture - Preliminary No growth in 1 day 02/04/18 15:50 Blood - Peripheral Anaerobic Blood Culture - Preliminary No growth in 1 day 02/04/18 15:50 Blood - Peripheral Aerobic Blood Culture - Preliminary No growth in 1 day 02/04/18 15:50 Blood - Peripheral Anaerobic Blood Culture - Preliminary No growth in 1 day 02/04/18 16:30 Nasal Wash Influenza Types A,B Antigen - Final Negative for FLU A and B antigen Infection due to influenza A or B cannot be ruled out since the antigen present in the sample may be below the detection limit of the test. Assessment and Plan (1) Pneumonia: Code(s): J18.9 - Pneumonia, unspecified organism Status: Acute (2) COPD (chronic obstructive pulmonary disease): Code(s): J44.9 - Chronic obstructive pulmonary disease, unspecified Status: Acute (3) Hypothyroid: Code(s): E03.9 - Hypothyroidism, unspecified Status: Acute (4) Depression: Code(s): F32.9 - Major depressive disorder, single episode, unspecified Status: Acute (5) HLD (hyperlipidemia): Code(s): E78.5 - Hyperlipidemia, unspecified Status: Acute Plan Patient allegedly transferred to our service at 2 PM. No sign out given from previous provider. Tried to contact Dr. Glez, did not picker tender helper, tried to contact AUSTIN Valdovinos, did not picker tender helper. There is a PA conical mixer Roberto Salinas who is saying that they are not conical mixer for this patient. Will take over care since patient is tachycardic since this morning. Sinus tachycardia-clinically sounds regular, has history of atrial fibrillation , check troponin, consult cardiology, check EKG, Cardizem orally given, will give 1 dose of IV bolus of Cardizem and started drip, transferred to the ICU. COPD exacerbation-bronchodilators, oxygen support, pulmonary following, on prednisone 5 mg daily, will stop, start Solu-Medrol. Possible community-acquired pneumonia-continue azithromycin and ceftriaxone. Transfer to intensive care unit. Aggregate critical care time was 35 minutes spent at bedside or in the hospital jett. Time to perform other separately billable procedures was not included in the critical care time. My time did not include minutes spent treating any other patients simultaneously or on activities that did not directly contribute to the patient's treatment. The services I provided to this patient were to treat and/or prevent clinically significant deterioration that could result in: organ failure, , disability or imminent clinical deterioration in the patient's condition. I provided critical care services requiring my management, as noted below: chart data review, documentation time, medication orders and management, vital sign assessments/reviewing monitor data, ordering and reviewing lab tests, ordering and interpreting/reviewing x-rays and diagnostic studies, care of the patient and discussion with other physicians and caregivers as needed. Progress Note: Quality VTE Deep Vein Thrombosis/Pulmonary Embolism Present on Admission: No _ (1) Pneumonia Qualifiers: Aspiration pneumonia type: Laterality: left Lung location: unspecified part of lung Pneumonia type: due to unspecified organism Qualified Code(s): J18.9 - Pneumonia, unspecified organism (2) COPD (chronic obstructive pulmonary disease) Qualifiers: COPD type: Chronic bronchitis type: Emphysema type: (3) Hypothyroid Qualifiers: Hypothyroidism type: (4) Depression Qualifiers: Depression Type: Major depression recurrence: Active/Remission status: Major depression episode severity: Psychotic features: Trimester: (5) HLD (hyperlipidemia) Qualifiers: Hyperlipidemia type:
[2018-02-05] MEDS: MethylPREDNISolone Sod Succinate Inj 40 MG/ML Vial IV.PUSH SCH ×2 (19:04→22:46)
[2018-02-05] MEDS: Azithromycin Inj 500 MG in Sodium Chlor 0.9% Inj 250 ML IV.SIG SCH (19:05)
[2018-02-05] MEDS: dilTIAZem Inj 125 MG in Sodium Chlor 0.9% Inj 100 ML IV.CONT PRN (19:36)
[2018-02-06] MEDS: MethylPREDNISolone Sod Succinate Inj 40 MG/ML Vial IV.PUSH SCH ×3 (05:46→17:31)
[2018-02-06] MEDS: dilTIAZem Inj 125 MG in Sodium Chlor 0.9% Inj 100 ML IV.CONT PRN ×2 (06:17→18:46)
[2018-02-06] MEDS: Butalbital/APAP/Caff 50/325/40 MG Tablet PO PRN (08:06)
[2018-02-06] MEDS: Pantoprazole Sodium 20 MG DR Tablet PO SCH (08:06)
--- NOTE | 2018-02-06 08:57 | P.PNIM ---
Subjective Interval history: Follow-up atrial fibrillation Currently, in atrial fibrillation, patient denies any chest pain or palpitations. Shortness of breath about the same as yesterday, not worse, not better. Afebrile. No dizziness or lightheadedness. No focal weakness. Physical Exam Vital signs: Last Vital Signs Temp 98.9 F 02/06/18 04:00 Pulse 126 H 02/06/18 07:27 Resp 26 H 02/06/18 08:05 BP 99/57 L 02/06/18 06:30 Pulse Ox 97 02/06/18 07:27 Intake & Output 02/04/18 02/05/18 02/06/18 02/07/18 06:59 06:59 06:59 06:59 Intake Total 1540 / 1540 575 / 575 Output Total 200 / 200 1250 / 1250 Balance 1340 / 1340 -675 / -675 Weight 80.5 kg 77.6 kg Narrative: Not in distress Tachycardic, irregular, no murmurs Wheezing is better, no crackles, good breath sounds. Abdomen soft nontender No edema Alert awake oriented x3, no focal deficits. Results Labs CBC & Chem 7: 02/05/18 06:05 02/05/18 06:05 Labs: Microbiology 02/04/18 15:50 Blood - Peripheral Aerobic Blood Culture - Preliminary No growth in 1 day 02/04/18 15:50 Blood - Peripheral Anaerobic Blood Culture - Preliminary No growth in 1 day 02/04/18 15:50 Blood - Peripheral Aerobic Blood Culture - Preliminary No growth in 1 day 02/04/18 15:50 Blood - Peripheral Anaerobic Blood Culture - Preliminary No growth in 1 day Assessment and Plan (1) Pneumonia: Code(s): J18.9 - Pneumonia, unspecified organism Status: Acute (2) COPD (chronic obstructive pulmonary disease): Code(s): J44.9 - Chronic obstructive pulmonary disease, unspecified Status: Acute (3) Hypothyroid: Code(s): E03.9 - Hypothyroidism, unspecified Status: Acute (4) Depression: Code(s): F32.9 - Major depressive disorder, single episode, unspecified Status: Acute (5) HLD (hyperlipidemia): Code(s): E78.5 - Hyperlipidemia, unspecified Status: Acute Plan This is a 77-year-old female with history of atrial fibrillation presenting with shortness of breath Atrial fibrillation, RVR -patient has not been taking medications for a few days , also has not been taking leflunomide. Troponin negative, on Cardizem drip at 10 mg/h. Start Cardizem 30 mg 4 times daily, titrate Cardizem drip restart leflunomide, need to bring the medication to the hospital since it is nonformulary. Cardiology consulted. Keep in the ICU for now. Will defer anticoagulation to cardiology, check echocardiogram. COPD exacerbation with community-acquired pneumonia-continue bronchodilators [id number] and as needed, pulmonary following, continue Solu-Medrol, decrease to every 8 hours, continue oxygen support, continue azithromycin and ceftriaxone. Continue Symbicort Hypothyroidism-continue Synthroid, check TSH, recheck BMP tomorrow Hypertension-hold hydrochlorothiazide for now with low blood pressure, likely from Cardizem drip. Other chronic medical issues are stable. Lovenox for DVT prophylaxis Progress Note: Quality VTE Deep Vein Thrombosis/Pulmonary Embolism Present on Admission: No _ (1) Pneumonia Qualifiers: Aspiration pneumonia type: Laterality: left Lung location: unspecified part of lung Pneumonia type: due to unspecified organism Qualified Code(s): J18.9 - Pneumonia, unspecified organism (2) COPD (chronic obstructive pulmonary disease) Qualifiers: COPD type: Chronic bronchitis type: Emphysema type: (3) Hypothyroid Qualifiers: Hypothyroidism type: (4) Depression Qualifiers: Depression Type: Major depression recurrence: Active/Remission status: Major depression episode severity: Psychotic features: Trimester: (5) HLD (hyperlipidemia) Qualifiers: Hyperlipidemia type:
[2018-02-06] MEDS ORDERED: dilTIAZem 30 MG Tablet PO SCH (09:00)
[2018-02-06] MEDS ORDERED: Enoxaparin Inj 40 MG/0.4 ML Syringe SQ SCH (09:00)
[2018-02-06] MEDS: Budesonide-Formoterol 160/4.5 MCG 6 GM Inhaler INH SCH ×2 (10:20→21:14)
[2018-02-06] MEDS: Levothyroxine 112 MCG Tablet PO SCH (10:20)
--- NOTE | 2018-02-06 10:49 | MB ---
cc: Dani Bonner MD DATE: 02/06/2018 REASON FOR CONSULTATION: Tachyarrhythmia. HISTORY OF PRESENT ILLNESS: The patient is a very pleasant 77-year-old woman, who has a history of COPD and per the chart, atrial fibrillation, although the patient denies much knowledge about this. She presented with worsening shortness of breath. She does have oxygen-dependent COPD. She was admitted for COPD/pneumonia, and has had a narrow complex tachyarrhythmia while admitted and thus I was consulted. Currently, the patient is comfortable, though on oxygen and mildly short of breath. She has a narrow complex tachycardia in the 130s, which appears to be an atrial tachycardia (versus less likely sinus tachycardia). On review of telemetry, there are more narrow irregular bouts that appear most consistent with salvos of atrial fibrillation. She denies chest pain, lightheadedness, or syncope. PAST MEDICAL HISTORY: Atrial fibrillation, COPD, diabetes, GERD, high cholesterol, rheumatoid arthritis. CURRENT MEDICATIONS: Aspirin, Cardizem drip, Celexa, p.o. diltiazem, Pravachol, Protonix. ALLERGIES: PENICILLIN. PHYSICAL EXAMINATION: VITAL SIGNS: Afebrile, pulse 126, respiratory rate 26, BP 130s/60s, saturating 97 on 3 liters. GENERAL: Pleasant woman in no distress. NECK: No JVD. LUNGS: Decreased breath sounds in all han. HEART: Tachycardic, but regular. No significant murmurs appreciated. ABDOMEN: Benign. EXTREMITIES: No edema. LABORATORY DATA: White count 9.4, hematocrit 27.7, down from 37.7; platelets 259, white count 138. Potassium 3.2, chloride 99, bicarbonate 32.2, BUN 10, creatinine 0.92, glucose 104, sodium 138, potassium 3.2. Troponins are negative. EKG shows an atrial tachycardia versus atrial flutter (versus less likely sinus tachycardia) at a rate of about [address] changes. IMPRESSION: Tachyarrhythmia. PLAN: The patient appears to have a couple of different atrial arrhythmias, likely atrial tachycardia/flutter, and some salvos of atrial fibrillation. Given her relatively high risk for stroke, I have initiated Eliquis 5 mg b.i.d. I do note her hematocrit has dropped on admission, and this may be somewhat dilutional. I will discuss with nursing and they can ensure that there are no signs of any active bleeding. Her blood counts will need to be monitored. With regard to rate control, she is on a Cardizem drip and I have added oral Cardizem 60, four times a day. Apparently, she has not been taking her home Cardizem. Once her drip is weaned off, she can be transferred to long-acting Cardizem. Further recommendations based on the above. Thank you again for the opportunity to participate in this patient's care. MD SHO Ayala/sammy , 09:21 AM , 09:30 AM
[2018-02-06] MEDS: dilTIAZem 60 MG Tablet PO SCH ×3 (12:09→21:15)
--- NOTE | 2018-02-06 12:58 | P.PN ---
Subjective Interval history: ALERT NOW IN ICU FOR A FIB RVR LESS SOB Physical Exam Vital signs: Vital Signs 02/05/18 15:25 02/05/18 15:57 02/05/18 19:00 Temperature 98.4 F Pulse Rate 112 H 130 H 82 Respiratory Rate 18 18 21 Blood Pressure 124/56 L 108/57 L Pulse Oximetry 94 L 02/05/18 19:04 02/05/18 19:30 02/05/18 20:00 Temperature 98.6 F Pulse Rate 86 82 Respiratory Rate 18 25 H 21 Blood Pressure 111/58 L 115/61 Pulse Oximetry 97 98 02/05/18 20:30 02/05/18 20:42 02/05/18 21:00 Temperature Pulse Rate 84 87 82 Respiratory Rate 25 H 18 19 Blood Pressure 115/67 119/64 Pulse Oximetry 96 98 96 02/05/18 21:30 02/05/18 22:00 02/05/18 22:30 Temperature Pulse Rate 134 H 80 130 H Respiratory Rate 18 21 19 Blood Pressure 115/61 113/60 118/61 Pulse Oximetry 98 96 96 02/05/18 23:00 02/05/18 23:30 02/06/18 00:00 Temperature Pulse Rate 128 H 126 H 126 H Respiratory Rate 20 12 15 Blood Pressure 109/62 112/61 113/58 L Pulse Oximetry 96 96 97 02/06/18 00:30 02/06/18 01:00 02/06/18 01:30 Temperature 97.8 F Pulse Rate 122 H 120 H 106 H Respiratory Rate 19 25 H 16 Blood Pressure 105/59 L 96/59 L 102/48 L Pulse Oximetry 97 97 97 02/06/18 02:00 02/06/18 02:30 02/06/18 03:00 Temperature Pulse Rate 86 68 66 Respiratory Rate 16 10 L 14 Blood Pressure 92/54 L 100/51 L 96/53 L Pulse Oximetry 98 99 98 02/06/18 03:30 02/06/18 03:33 02/06/18 04:00 Temperature 98.9 F Pulse Rate 74 70 77 Respiratory Rate 18 17 16 Blood Pressure 91/53 L 95/50 L 121/68 Pulse Oximetry 98 98 02/06/18 04:01 02/06/18 04:30 02/06/18 05:00 Temperature Pulse Rate 112 H 72 90 Respiratory Rate 20 12 30 H Blood Pressure 104/59 L 95/48 L Pulse Oximetry 02/06/18 05:30 02/06/18 06:00 02/06/18 06:30 Temperature Pulse Rate 98 H 98 H 72 Respiratory Rate 18 19 16 Blood Pressure 94/60 L 111/61 99/57 L Pulse Oximetry 02/06/18 07:27 02/06/18 08:00 02/06/18 08:05 Temperature 98.1 F Pulse Rate 126 H 130 H Respiratory Rate 19 14 26 H Blood Pressure 126/73 Pulse Oximetry 97 02/06/18 09:00 Temperature 98.1 F Pulse Rate 134 H Respiratory Rate 22 Blood Pressure 133/71 Pulse Oximetry Intake & Output 02/05/18 02/06/18 02/06/18 18:59 06:59 18:59 Intake Total 100 / 100 475 / 475 Output Total 1250 / 1250 Balance 100 / 100 -775 / -775 Weight 77.6 kg Intake: IV 100 / 100 475 / 475 Cardizem Inj 125 MG In NS Inj 125 / 125 100 ML @ 5 MG/HR 5 mls/hr IV. CONT TITRATE PRN Rx#:[id number] Azithromycin Inj 500 MG In NS 250 / 250 Inj 250 ML @ 250 mls/hr IV.SIG Q24H SIMON Rx#:[id number] Rocephin Inj 1,000 MG In NS Inj 100 / 100 100 / 100 100 ML @ 200 mls/hr IV.SIG Q12H SIMON Rx#:[id number] Output: Urine 1250 / 1250 Other: # Voids 2 Date of Last Bowel Movement 02/01/18 02/01/18 Narrative: Not in distress Tachycardic, irregular, no murmurs Wheezing is better, no crackles, good breath sounds. Abdomen soft nontender No edema Alert awake oriented x3, no focal deficits. Results - Labs CBC & Chem 7: 02/05/18 06:05 02/05/18 06:05 Laboratory Results - last 24 hr 02/05/18 17:45 Troponin I 0.02 Microbiology 02/04/18 15:50 Blood - Peripheral Aerobic Blood Culture - Preliminary No growth in 2 days 02/04/18 15:50 Blood - Peripheral Anaerobic Blood Culture - Preliminary No growth in 2 days 02/04/18 15:50 Blood - Peripheral Aerobic Blood Culture - Preliminary No growth in 2 days 02/04/18 15:50 Blood - Peripheral Anaerobic Blood Culture - Preliminary No growth in 2 days Assessment and Plan - Plan COPD EXACERBATION PNA AFIB PLAN O2 AMTIBX BRONCHODILATOR THERAPY CARDIOLOGY FOLLOWING
--- NOTE | 2018-02-06 14:31 | ECG ---
Date Performed: 02/05/2018 Time Performed: 17:34:09 PTAGE: 77 years EKG: SINUS TACHYCARDIA WITH FREQUENT SUPRAVENTRICULAR PREMATURE COMPLEXES ST DEVIATION AND MODER ATE T-WAVE ABNORMALITY, CONSIDER LATERAL ISCHEMIA ST DEVIATION AND MODERATE T-WAVE ABNORMALITY, CONSI TERRY INFERIOR ISCHEMIA ABNORMAL ECG PREVIOUS TRACING : 02/04/2018 15.54 DOCTOR: Dani Bonner Interpretating Date/Time 02/06/2018 14:30:23
--- NOTE | 2018-02-06 14:33 | ECG ---
Date Performed: 02/06/2018 Time Performed: 08:52:13 PTAGE: 77 years EKG: ATRIAL TACHYCARDIA VS ATRIAL FLUTTER ST DEVIATION AND MODERATE T-WAVE ABNORMALITY, CONSIDER INFERIOR ISCHEMIA ABNORMAL ECG Compared to PREVIOUS TRACING , the narrow complex tachycardia is new. ST changes are more prominent. PREVIOUS TRACIN02/05/2018 17.34 DOCTOR: Dani Bonner Interpretating Date/Time 02/06/2018 14:31:31
[2018-02-06] MEDS: Azithromycin Inj 500 MG in Sodium Chlor 0.9% Inj 250 ML IV.SIG SCH (18:35)
[2018-02-07] MEDS: MethylPREDNISolone Sod Succinate Inj 40 MG/ML Vial IV.PUSH SCH ×3 (01:38→16:24)
[2018-02-07 05:11] LABS: Potassium 3.3 meq/L (3.5-5.1)
[2018-02-07 05:14] LABS: Calcium 8.7 mg/dL (8.5-10.1)
[2018-02-07 05:21] LABS: Carbon Dioxide 30.4 meq/L (21.0-32.0)
[2018-02-07 05:31] LABS: Thyroid Stimulating Hormone 1.73 uIU/mL (0.358-3.740)
[2018-02-07] MEDS: LEFLUNOMIDE 20 MG PO SCH (08:39)
[2018-02-07] MEDS: Budesonide-Formoterol 160/4.5 MCG 6 GM Inhaler INH SCH ×2 (08:41→21:15)
[2018-02-07] MEDS: Levothyroxine 112 MCG Tablet PO SCH (08:43)
[2018-02-07] MEDS: Pantoprazole Sodium 20 MG DR Tablet PO SCH (08:44)
[2018-02-07] MEDS: dilTIAZem 60 MG Tablet PO SCH (08:44)
--- NOTE | 2018-02-07 09:54 | ECHRPT ---
Indication: Atrial Fib and Flutter CONCLUSIONS Normal left ventricular size. Mild concentric left ventricular hypertrophy. The left ventricular systolic function is normal with an estimated ejection fraction in the range of 55-60%. Mild mitral valve regurgitation. Diffuse calcification of the aortic valve. Trace aortic valve regurgitation. Moderate aortic valve stenosis, mean gradient 23-26 mmHg There is trace tricuspid valve regurgitation. The estimated pulmonary arterial pressure is 39 mmHg. There is no pericardial effusion. BP: 116 / 62 HR: 131 Rhythm: MEASUREMENTS (Male / Female) Normal Values Technical Quality:Technically difficult study 2D ECHO LV Diastolic Diameter PLAX 4.0 cm 4.2 - 5.9 / 3.9 - 5.3 cm LV Systolic Diameter PLAX 2.6 cm IVS Diastolic Thickness 1.1 cm 0.6 - 1.0 / 0.6 - 0.9 cm LVPW Diastolic Thickness 1.1 cm 0.6 - 1.0 / 0.6 - 0.9 cm LV Relative Wall Thickness 0.6 RV Internal Dim ED PLAX 3.5 cm LVOT Diameter 1.8 cm Aortic Root Diameter 2.9 cm LA Systolic Diameter LX 3.9 cm 3.0 - 4.0 / 2.7 - 3.8 cm DOPPLER AV Peak Velocity 320.0 cm/s AV Peak Gradient 41.0 mmHg AV Mean Gradient 23.0 mmHg AV Velocity Time Integral 54.6 cm LVOT Peak Velocity 108.3 cm/s LVOT Peak Gradient 4.7 mmHg LVOT Velocity Time Integral 18.7 cm LVOT Cardiac Index 3390.8 cm/minm AV Area Cont Eq vti 0.9 cm AV Area Cont Eq pk 0.9 cm Mitral E Point Velocity 141.0 cm/s LV E' Lateral Velocity 18.6 cm/s Mitral E to LV E' Lateral Ratio 7.6 LV E' Septal Velocity 12.8 cm/s Mitral E to LV E' Septal Ratio 11.0 TR Peak Velocity 271.0 cm/s TR Peak Gradient 29.4 mmHg Right Atrial Pressure 10.0 mmHg Pulmonary Artery Systolic Pressu 39.4 mmHg Right Ventricular Systolic Press 39.4 mmHg PV Peak Velocity 118.0 cm/s PV Peak Gradient 5.6 mmHg FINDINGS LEFT VENTRICLE Normal left ventricular size. Mild concentric left ventricular hypertrophy. The left ventricular systolic function is normal with an estimated ejection fraction in the range of 55-60%. RIGHT VENTRICLE Normal right ventricular size and systolic function. LEFT ATRIUM The left atrial size is normal. RIGHT ATRIUM The right atrial size is normal. ATRIAL SEPTUM Normal atrial septal thickness without atrial level shunting by limited color doppler interrogation. AORTA The aortic root and proximal ascending aorta are normal in size on limited imaging. MITRAL VALVE Mild mitral valve regurgitation. AORTIC VALVE Trileaflet aortic valve. Diffuse calcification of the aortic valve. Trace aortic valve regurgitation. Moderate aortic valve stenosis. TRICUSPID VALVE There is trace tricuspid valve regurgitation. The estimated pulmonary arterial pressure is 39 mmHg. PULMONARY VALVE The pulmonary valve is not well visualized. VESSELS The inferior vena cava was not well visualized. PERICARDIUM There is no pericardial effusion. Dani Bonner MD (Electronically Signed) Final Date:07 February 2018 09:52
--- NOTE | 2018-02-07 10:39 | P.PNCA ---
Subjective Interval history: Pt breathing better, still salvos of aflutter/tachy which she feels, still on cardizem ggt Medications and Allergies Active Medications: Active Medications Acetaminophen/Butalbital/Caffeine (Fioricet 50-325-40) 1 tab PO Q6H PRN PRN Reason: HEADACHE Last Admin: 02/06/18 08:06 Dose: 1 tab Hydrocodone Bitart/Acetaminophen ([place] 10/325) 1 tab PO BID [facility] Last Admin: 02/07/18 08:44 Dose: 1 tab Albuterol (Duoneb Neb ([facility])) 1 ampul NEB Q6HR WHILE AWAKE NEB [facility] Last Admin: 02/07/18 07:20 Dose: 1 ampul Apixaban (Eliquis) 5 mg PO BID [facility] Last Admin: 02/07/18 08:44 Dose: 5 mg Budesonide/Formoterol Fumarate (Symbicort 160/4.5 Mcg Inh) 2 puff INH BID [facility] Last Admin: 02/07/18 08:41 Dose: 2 puff Citalopram Hydrobromide (Celexa) 40 mg PO DAILY [facility] Last Admin: 02/07/18 08:44 Dose: 40 mg Diltiazem HCl (Cardizem) 60 mg PO QID [facility] Last Admin: 02/07/18 08:44 Dose: 60 mg Hydrochlorothiazide (Microzide) 12.5 mg PO DAILY [facility] Last Admin: 02/06/18 08:06 Dose: 12.5 mg Ceftriaxone Sodium 1,000 mg/ (Sodium Chloride) 100 mls @ 200 mls/hr IV.SIG Q12H [facility] Last Admin: 02/07/18 05:49 Dose: 200 mls/hr Azithromycin 500 mg/ Sodium (Chloride) 250 mls @ 250 mls/hr IV.SIG Q24H [facility] Last Admin: 02/06/18 18:35 Dose: 250 mls/hr Diltiazem HCl 125 mg/ Sodium (Chloride) 125 mls @ 5 mls/hr IV.CONT TITRATE PRN ; Protocol PRN Reason: Per Protocol Last Admin: 02/06/18 18:46 Dose: 10 mg/hr, 10 mls/hr Levothyroxine Sodium (Synthroid) 112 mcg PO DAILY [facility] Last Admin: 02/07/18 08:43 Dose: 112 mcg Methylprednisolone Sodium Succinate (Solumedrol Inj) 40 mg IV.PUSH Q8H [facility] Last Admin: 02/07/18 08:45 Dose: 40 mg Pantoprazole Sodium (Protonix) 20 mg PO DAILY [facility] Last Admin: 02/07/18 08:44 Dose: 20 mg Patient Own Medication- Leflunomide (Arava) 20mg Tablet 0 each PO DAILY [facility] Last Admin: 02/07/18 08:39 Dose: 1 each Pravastatin Sodium (Pravachol) 20 mg PO DAILY [facility] Last Admin: 02/07/18 08:44 Dose: 20 mg Allergies Allergy/AdvReac Type Severity Reaction Status Date / Time penicillin G Allergy Unknown rash Verified 02/04/18 16:07 Home Medications Medication Instructions Recorded Confirmed Type aspirin [Aspir-81] 81 mg PO DAILY 12/06/17 02/04/18 History budesonide-formoterol [Symbicort] 2 puff INHALATION BID 12/06/17 02/04/18 History citalopram 40 mg PO DAILY 12/06/17 02/04/18 History diltiazem HCl 180 mg PO DAILY 12/06/17 02/04/18 History hydrochlorothiazide 12.5 mg PO DAILY 12/06/17 02/04/18 History hydrocodone-acetaminophen 1 tab PO BID 12/06/17 02/04/18 History leflunomide 20 mg PO DAILY 12/06/17 02/04/18 History levothyroxine 112 mcg PO DAILY 12/06/17 02/04/18 History lovastatin 20 mg PO DAILY 12/06/17 02/04/18 History omeprazole 20 mg PO DAILY 12/06/17 02/04/18 History prednisone 5 mg PO DAILY 12/06/17 02/04/18 History Physical Exam Vital signs: Vital Signs 02/06/18 12:00 02/06/18 12:30 02/06/18 13:03 Temperature Pulse Rate 126 H 128 H 92 H Respiratory Rate 23 24 42 H Blood Pressure 113/54 L 116/56 L Pulse Oximetry 95 95 02/06/18 13:05 02/06/18 13:23 02/06/18 13:30 Temperature Pulse Rate 80 86 106 H Respiratory Rate 26 H 19 11 L Blood Pressure 122/63 101/60 Pulse Oximetry 02/06/18 14:00 02/06/18 14:30 02/06/18 15:00 Temperature Pulse Rate 114 H 108 H 96 H Respiratory Rate 20 19 18 Blood Pressure 116/62 106/54 L 104/46 L Pulse Oximetry 02/06/18 15:30 02/06/18 16:00 02/06/18 16:08 Temperature Pulse Rate 72 72 78 Respiratory Rate 29 H 19 16 Blood Pressure 95/50 L 90/50 L 104/68 Pulse Oximetry 02/06/18 17:00 02/06/18 17:30 02/06/18 18:00 Temperature Pulse Rate 76 128 H 88 Respiratory Rate 19 28 H 30 H Blood Pressure 120/53 L 140/72 107/69 Pulse Oximetry 02/06/18 19:00 02/06/18 19:22 02/06/18 20:00 Temperature 98 F Pulse Rate 88 104 H 81 Respiratory Rate 28 H 22 Blood Pressure 90/64 L Pulse Oximetry 95 92 L 95 02/06/18 20:52 02/06/18 22:00 02/06/18 23:00 Temperature Pulse Rate 81 89 88 Respiratory Rate Blood Pressure Pulse Oximetry 02/07/18 00:00 02/07/18 01:00 02/07/18 02:00 Temperature 98 F Pulse Rate 70 70 84 Respiratory Rate 28 H Blood Pressure 91/45 L Pulse Oximetry 95 02/07/18 02:04 02/07/18 04:00 02/07/18 04:40 Temperature 98 F Pulse Rate 85 95 H 70 Respiratory Rate 28 H Blood Pressure 131/75 Pulse Oximetry 96 02/07/18 05:56 02/07/18 07:00 02/07/18 08:00 Temperature Pulse Rate 70 94 H 74 Respiratory Rate 17 16 Blood Pressure 117/68 125/58 L Pulse Oximetry 96 96 02/07/18 08:14 02/07/18 08:44 02/07/18 09:00 Temperature Pulse Rate 118 H 86 Respiratory Rate 18 22 25 H Blood Pressure 131/63 Pulse Oximetry 96 02/07/18 09:30 02/07/18 10:00 Temperature 98.3 F Pulse Rate 130 H 126 H Respiratory Rate 26 H 17 Blood Pressure 119/65 122/63 Pulse Oximetry Intake & Output 02/06/18 02/07/18 02/07/18 18:59 06:59 18:59 Intake Total 1185 / 1185 360 / 360 Output Total 600 / 600 Balance 585 / 585 360 / 360 Weight 77.6 kg Intake: IV 225 / 225 Cardizem Inj 125 MG In NS Inj 125 / 125 100 ML @ 5 MG/HR 5 mls/hr IV. CONT TITRATE PRN Rx#:[id number] Rocephin Inj 1,000 MG In NS Inj 100 / 100 100 ML @ 200 mls/hr IV.SIG Q12H [facility] Rx#:[id number] Oral 960 / 960 360 / 360 Output: Urine 600 / 600 Other: # Voids 2 Date of Last Bowel Movement 02/01/18 02/01/18 02/01/18 - Constitutional no acute distress - Routine HEENT Exam Head: Present: normocephalic Eye: Present: EOMI ENT: Present: mucous membranes moist - Routine Neck Exam Present: supple. Absent: JVD - Routine Respiratory Exam Present: CTA bilaterally - Routine Cardiovascular Exam Present: tachycardia Comments: 2/6 NARENDRA - Routine Extremities Exam Absent: edema Results 02/05/18 06:05 02/07/18 04:45 Cardiac Enzymes 02/05/18 Range/Units 17:45 Troponin I 0.02 (0.02-0.05) ng/mL Comprehensive Metabolic Panel 02/07/18 Range/Units 04:45 Sodium 137 (136-145) meq/L Potassium 3.3 L (3.5-5.1) meq/L Chloride 98 (98-107) meq/L Carbon Dioxide 30.4 (21.0-32.0) meq/L BUN 28 H (7-18) mg/dL Creatinine 1.20 H (0.50-1.00) mg/dL Calcium 8.7 (8.5-10.1) mg/dL Intake and Output 02/06/18 02/07/18 02/07/18 22:59 06:59 14:59 Intake Total 1185 / 1185 360 / 360 Output Total 600 / 600 Balance 585 / 585 360 / 360 Intake: IV 225 / 225 Cardizem Inj 125 MG In NS Inj 125 / 125 100 ML @ 5 MG/HR 5 mls/hr IV. CONT TITRATE PRN Rx#:[id number] Rocephin Inj 1,000 MG In NS Inj 100 / 100 100 ML @ 200 mls/hr IV.SIG Q12H [facility] Rx#:[id number] Oral 960 / 960 360 / 360 Output: Urine 600 / 600 Other: # Voids 2 Date of Last Bowel Movement 02/01/18 02/01/18 02/01/18 Weight 77.6 kg Assessment and Plan - Assessment (1) Atrial flutter Code(s): I48.92 - Unspecified atrial flutter Status: Acute Plan: will increase oral diltiazem, try to wean down ggt; on eliquis. Mod by echo, good LV fxn. - Plan Dr. Treviño will be following tomorrow.
[2018-02-07] MEDS: Azithromycin Inj 500 MG in Sodium Chlor 0.9% Inj 250 ML IV.SIG SCH (19:23)
[2018-02-08] MEDS: MethylPREDNISolone Sod Succinate Inj 40 MG/ML Vial IV.PUSH SCH ×3 (00:52→16:57)
--- NOTE | 2018-02-08 07:49 | P.PNCA ---
Subjective Interval history: Pt doing well, mostly NSR w/ occasional brief salvos of afib/flut Medications and Allergies Active Medications: Active Medications Acetaminophen/Butalbital/Caffeine (Fioricet 50-325-40) 1 tab PO Q6H PRN PRN Reason: HEADACHE Last Admin: 02/06/18 08:06 Dose: 1 tab Hydrocodone Bitart/Acetaminophen ([place] 10/325) 1 tab PO BID [facility] Last Admin: 02/07/18 21:14 Dose: 1 tab Albuterol (Duoneb Neb ([facility])) 1 ampul NEB Q6HR WHILE AWAKE NEB [facility] Last Admin: 02/07/18 19:19 Dose: 1 ampul Apixaban (Eliquis) 5 mg PO BID [facility] Last Admin: 02/07/18 21:14 Dose: 5 mg Budesonide/Formoterol Fumarate (Symbicort 160/4.5 Mcg Inh) 2 puff INH BID [facility] Last Admin: 02/07/18 21:15 Dose: 2 puff Citalopram Hydrobromide (Celexa) 40 mg PO DAILY [facility] Last Admin: 02/07/18 08:44 Dose: 40 mg Diltiazem HCl (Cardizem Cd 24hr) 360 mg PO ONCE ONE Stop: 02/08/18 07:46 Hydrochlorothiazide (Microzide) 12.5 mg PO DAILY [facility] Last Admin: 02/06/18 08:06 Dose: 12.5 mg Ceftriaxone Sodium 1,000 mg/ (Sodium Chloride) 100 mls @ 200 mls/hr IV.SIG Q12H [facility] Last Infusion: 02/08/18 06:17 Dose: Infused Azithromycin 500 mg/ Sodium (Chloride) 250 mls @ 250 mls/hr IV.SIG Q24H [facility] Last Infusion: 02/08/18 06:15 Dose: Infused Diltiazem HCl 125 mg/ Sodium (Chloride) 125 mls @ 5 mls/hr IV.CONT TITRATE PRN ; Protocol PRN Reason: Per Protocol Last Admin: 02/06/18 18:46 Dose: 10 mg/hr, 10 mls/hr Levothyroxine Sodium (Synthroid) 112 mcg PO DAILY [facility] Last Admin: 02/07/18 08:43 Dose: 112 mcg Methylprednisolone Sodium Succinate (Solumedrol Inj) 40 mg IV.PUSH Q8H [facility] Last Admin: 02/08/18 00:52 Dose: 40 mg Pantoprazole Sodium (Protonix) 20 mg PO DAILY [facility] Last Admin: 02/07/18 08:44 Dose: 20 mg Patient Own Medication- Leflunomide (Arava) 20mg Tablet 0 each PO DAILY [facility] Last Admin: 02/07/18 08:39 Dose: 1 each Pravastatin Sodium (Pravachol) 20 mg PO DAILY [facility] Last Admin: 02/07/18 08:44 Dose: 20 mg Allergies Allergy/AdvReac Type Severity Reaction Status Date / Time penicillin G Allergy Unknown rash Verified 02/04/18 16:07 Home Medications Medication Instructions Recorded Confirmed Type aspirin [Aspir-81] 81 mg PO DAILY 12/06/17 02/04/18 History budesonide-formoterol [Symbicort] 2 puff INHALATION BID 12/06/17 02/04/18 History citalopram 40 mg PO DAILY 12/06/17 02/04/18 History diltiazem HCl 180 mg PO DAILY 12/06/17 02/04/18 History hydrochlorothiazide 12.5 mg PO DAILY 12/06/17 02/04/18 History hydrocodone-acetaminophen 1 tab PO BID 12/06/17 02/04/18 History leflunomide 20 mg PO DAILY 12/06/17 02/04/18 History levothyroxine 112 mcg PO DAILY 12/06/17 02/04/18 History lovastatin 20 mg PO DAILY 12/06/17 02/04/18 History omeprazole 20 mg PO DAILY 12/06/17 02/04/18 History prednisone 5 mg PO DAILY 12/06/17 02/04/18 History Physical Exam Vital signs: Vital Signs 02/07/18 08:00 02/07/18 08:14 02/07/18 08:44 Temperature Pulse Rate 72 118 H Respiratory Rate 16 18 22 Blood Pressure 125/58 L Pulse Oximetry 96 96 02/07/18 09:00 02/07/18 09:30 02/07/18 10:00 Temperature 98.3 F Pulse Rate 86 130 H 126 H Respiratory Rate 25 H 26 H 17 Blood Pressure 131/63 119/65 122/63 Pulse Oximetry 02/07/18 11:00 02/07/18 12:00 02/07/18 13:00 Temperature Pulse Rate 86 76 82 Respiratory Rate 38 H 24 30 H Blood Pressure 111/60 98/46 L 118/56 L Pulse Oximetry 02/07/18 14:00 02/07/18 14:15 02/07/18 15:00 Temperature Pulse Rate 72 83 80 Respiratory Rate 19 18 20 Blood Pressure 117/64 109/57 L Pulse Oximetry 02/07/18 16:00 02/07/18 17:00 02/07/18 18:00 Temperature Pulse Rate 80 92 H 88 Respiratory Rate 24 24 29 H Blood Pressure 117/58 L 123/63 141/73 H Pulse Oximetry 02/07/18 19:00 02/07/18 19:18 02/07/18 20:00 Temperature 98.2 F Pulse Rate 77 77 87 Respiratory Rate 23 20 23 Blood Pressure 138/62 119/66 Pulse Oximetry 95 93 L 02/07/18 21:00 02/07/18 21:14 02/07/18 21:44 Temperature Pulse Rate 86 Respiratory Rate 25 H 24 22 Blood Pressure 118/67 Pulse Oximetry 95 02/07/18 22:00 02/07/18 23:00 02/08/18 00:00 Temperature 97.5 F L Pulse Rate 78 102 H 73 Respiratory Rate 22 22 24 Blood Pressure 114/56 L 101/50 L 101/50 L Pulse Oximetry 97 94 L 95 02/08/18 01:00 02/08/18 02:00 02/08/18 03:00 Temperature Pulse Rate 70 69 67 Respiratory Rate 16 16 16 Blood Pressure 108/50 L 100/51 L Pulse Oximetry 94 L 94 L 02/08/18 04:00 02/08/18 04:38 02/08/18 06:00 Temperature 98.4 F 98.8 F Pulse Rate 94 H 72 81 Respiratory Rate 22 22 22 Blood Pressure 114/64 114/72 124/59 L Pulse Oximetry 94 L 94 L Intake & Output 02/07/18 02/08/18 02/08/18 18:59 06:59 18:59 Intake Total 960 / 960 570 / 570 Output Total 675 / 675 400 / 400 Balance 285 / 285 170 / 170 Weight 79.2 kg Intake: IV 450 / 450 Azithromycin Inj 500 MG In NS 250 / 250 Inj 250 ML @ 250 mls/hr IV.SIG Q24H [facility] Rx#:[id number] Rocephin Inj 1,000 MG In NS Inj 200 / 200 100 ML @ 200 mls/hr IV.SIG Q12H [facility] Rx#:[id number] Oral 960 / 960 120 / 120 Output: Urine 675 / 675 400 / 400 Other: Date of Last Bowel Movement 02/07/18 # Bowel Movements 1 0 - Constitutional no acute distress - Routine HEENT Exam Head: Present: normocephalic Eye: Present: EOMI ENT: Present: mucous membranes moist - Routine Neck Exam Present: supple. Absent: thyromegaly - Routine Respiratory Exam Present: wheezes - Routine Cardiovascular Exam Present: RRR - Routine Extremities Exam Absent: edema Results 02/05/18 06:05 02/07/18 04:45 Comprehensive Metabolic Panel 02/07/18 Range/Units 04:45 Sodium 137 (136-145) meq/L Potassium 3.3 L (3.5-5.1) meq/L Chloride 98 (98-107) meq/L Carbon Dioxide 30.4 (21.0-32.0) meq/L BUN 28 H (7-18) mg/dL Creatinine 1.20 H (0.50-1.00) mg/dL Calcium 8.7 (8.5-10.1) mg/dL Intake and Output 02/07/18 02/08/18 02/08/18 22:59 06:59 14:59 Intake Total 1060 / 1060 470 / 470 Output Total 675 / 675 400 / 400 Balance 385 / 385 70 / 70 Intake: IV 100 / 100 350 / 350 Azithromycin Inj 500 MG In NS 250 / 250 Inj 250 ML @ 250 mls/hr IV.SIG Q24H [facility] Rx#:[id number] Rocephin Inj 1,000 MG In NS Inj 100 / 100 100 / 100 100 ML @ 200 mls/hr IV.SIG Q12H [facility] Rx#:[id number] Oral 960 / 960 120 / 120 Output: Urine 675 / 675 400 / 400 Other: Date of Last Bowel Movement 02/07/18 # Bowel Movements 1 0 Weight 79.2 kg Assessment and Plan - Assessment (1) Atrial flutter Code(s): I48.92 - Unspecified atrial flutter Status: Acute Plan: on eliquis, changed to long acting diltiazem, currently sr. Mod by echo, good LV fxn. - Plan Doing better, stable cardiac-adler though still a bit wheezy; will get PT involved. She will f/u with Dr treviño as outpt Dr. Treviño be available prn tomrrow.
[2018-02-08] MEDS ORDERED: dilTIAZem CD 180 MG Capsule PO ONE (08:00)
[2018-02-08] MEDS: Pantoprazole Sodium 20 MG DR Tablet PO SCH (08:11)
[2018-02-08] MEDS: Budesonide-Formoterol 160/4.5 MCG 6 GM Inhaler INH SCH ×2 (08:13→21:38)
[2018-02-08] MEDS: LEFLUNOMIDE 20 MG PO SCH (08:13)
[2018-02-08] MEDS: Levothyroxine 112 MCG Tablet PO SCH (08:14)
--- NOTE | 2018-02-08 09:36 | P.PNFP ---
Subjective Interval history: patient coverage resumed at 7 AM patient previously signed out to [facility] at 2 pm on monday 02/05 <GlezThomas - 02/08/18 15:56> Remains in ICU, NSR dyspneic, more on exertion. Denies Cp, Palpation Off Cardizem Gtt. <Aruna Johnson - 02/08/18 09:36> Results - Labs Result diagrams: 02/05/18 06:05 02/07/18 04:45 <GlezThomas - 02/08/18 15:56> Physical Exam Vital signs: Vital Signs 02/07/18 16:00 02/07/18 17:00 02/07/18 18:00 Temperature Pulse Rate 80 92 H 88 Respiratory Rate 24 24 29 H Blood Pressure 117/58 L 123/63 141/73 H Pulse Oximetry 02/07/18 19:00 02/07/18 19:18 02/07/18 20:00 Temperature 98.2 F Pulse Rate 77 77 87 Respiratory Rate 23 20 23 Blood Pressure 138/62 119/66 Pulse Oximetry 95 93 L 02/07/18 21:00 02/07/18 21:14 02/07/18 21:44 Temperature Pulse Rate 86 Respiratory Rate 25 H 24 22 Blood Pressure 118/67 Pulse Oximetry 95 02/07/18 22:00 02/07/18 23:00 02/08/18 00:00 Temperature 97.5 F L Pulse Rate 78 102 H 73 Respiratory Rate 22 22 24 Blood Pressure 114/56 L 101/50 L 101/50 L Pulse Oximetry 97 94 L 95 02/08/18 01:00 02/08/18 02:00 02/08/18 03:00 Temperature Pulse Rate 70 69 67 Respiratory Rate 16 16 16 Blood Pressure 108/50 L 100/51 L Pulse Oximetry 94 L 94 L 02/08/18 04:00 02/08/18 04:38 02/08/18 06:00 Temperature 98.4 F 98.8 F Pulse Rate 94 H 72 81 Respiratory Rate 22 22 22 Blood Pressure 114/64 114/72 124/59 L Pulse Oximetry 94 L 94 L 02/08/18 07:52 02/08/18 08:00 02/08/18 08:11 Temperature 98.2 F Pulse Rate 88 96 H Respiratory Rate 18 20 23 Blood Pressure 131/65 Pulse Oximetry 94 L 95 02/08/18 09:00 02/08/18 10:00 02/08/18 11:00 Temperature Pulse Rate 90 84 96 H Respiratory Rate 24 20 12 Blood Pressure 125/57 L 115/54 L 110/57 L Pulse Oximetry 02/08/18 12:00 02/08/18 12:59 02/08/18 13:00 Temperature 98.6 F Pulse Rate 92 H 78 Respiratory Rate 15 19 Blood Pressure 130/63 124/72 Pulse Oximetry 02/08/18 13:50 02/08/18 14:00 02/08/18 15:00 Temperature Pulse Rate 86 88 82 Respiratory Rate 20 15 21 Blood Pressure 124/64 Pulse Oximetry Intake & Output 02/07/18 02/08/18 02/08/18 18:59 06:59 18:59 Intake Total 960 / 960 570 / 570 Output Total 675 / 675 400 / 400 Balance 285 / 285 170 / 170 Weight 79.2 kg Intake: IV 450 / 450 Azithromycin Inj 500 MG In NS 250 / 250 Inj 250 ML @ 250 mls/hr IV.SIG Q24H [facility] Rx#:[id number] Rocephin Inj 1,000 MG In NS Inj 200 / 200 100 ML @ 200 mls/hr IV.SIG Q12H [facility] Rx#:[id number] Oral 960 / 960 120 / 120 Output: Urine 675 / 675 400 / 400 Other: Date of Last Bowel Movement 02/07/18 # Bowel Movements 1 0 <Thomas Glez - 02/08/18 15:56> Vital Signs 02/07/18 10:00 02/07/18 11:00 02/07/18 12:00 Temperature 98.3 F Pulse Rate 126 H 86 76 Respiratory Rate 17 38 H 24 Blood Pressure 122/63 111/60 98/46 L Pulse Oximetry 02/07/18 13:00 02/07/18 14:00 02/07/18 14:15 Temperature Pulse Rate 82 72 83 Respiratory Rate 30 H 19 18 Blood Pressure 118/56 L 117/64 Pulse Oximetry 02/07/18 15:00 02/07/18 16:00 02/07/18 17:00 Temperature Pulse Rate 80 80 92 H Respiratory Rate 20 24 24 Blood Pressure 109/57 L 117/58 L 123/63 Pulse Oximetry 02/07/18 18:00 02/07/18 19:00 02/07/18 19:18 Temperature Pulse Rate 88 77 77 Respiratory Rate 29 H 23 20 Blood Pressure 141/73 H 138/62 Pulse Oximetry 95 02/07/18 20:00 02/07/18 21:00 02/07/18 21:14 Temperature 98.2 F Pulse Rate 87 86 Respiratory Rate 23 25 H 24 Blood Pressure 119/66 118/67 Pulse Oximetry 93 L 95 02/07/18 21:44 02/07/18 22:00 02/07/18 23:00 Temperature Pulse Rate 78 102 H Respiratory Rate 22 22 22 Blood Pressure 114/56 L 101/50 L Pulse Oximetry 97 94 L 02/08/18 00:00 02/08/18 01:00 02/08/18 02:00 Temperature 97.5 F L Pulse Rate 73 70 69 Respiratory Rate 24 16 16 Blood Pressure 101/50 L 108/50 L Pulse Oximetry 95 94 L 02/08/18 03:00 02/08/18 04:00 02/08/18 04:38 Temperature 98.4 F 98.8 F Pulse Rate 67 94 H 72 Respiratory Rate 16 22 22 Blood Pressure 100/51 L 114/64 114/72 Pulse Oximetry 94 L 94 L 02/08/18 06:00 02/08/18 07:52 02/08/18 08:00 Temperature 98.2 F Pulse Rate 81 88 94 H Respiratory Rate 22 18 17 Blood Pressure 124/59 L 131/65 Pulse Oximetry 94 L 94 L 95 02/08/18 08:11 Temperature Pulse Rate Respiratory Rate 23 Blood Pressure Pulse Oximetry Intake & Output 02/07/18 02/08/18 02/08/18 18:59 06:59 18:59 Intake Total 960 / 960 570 / 570 Output Total 675 / 675 400 / 400 Balance 285 / 285 170 / 170 Weight 79.2 kg Intake: IV 450 / 450 Azithromycin Inj 500 MG In NS 250 / 250 Inj 250 ML @ 250 mls/hr IV.SIG Q24H [facility] Rx#:[id number] Rocephin Inj 1,000 MG In NS Inj 200 / 200 100 ML @ 200 mls/hr IV.SIG Q12H [facility] Rx#:[id number] Oral 960 / 960 120 / 120 Output: Urine 675 / 675 400 / 400 Other: Date of Last Bowel Movement 02/07/18 # Bowel Movements 1 0 <Elizabeth,[facility] 02/08/18 09:36> - Constitutional no acute distress <[facility] 02/08/18 09:36> - Routine HEENT Exam [facility]: Present: [facility] ENT: Present: mucous membranes moist <[facility] 02/08/18 09:36> - Routine Respiratory Exam Present: rhonchi, wheezes <[facility] 02/08/18 09:36> - Routine Cardiovascular Exam Present: S1, S2 <[facility] 02/08/18 09:36> - Routine Abdominal Exam Present: soft, normoactive bowel sounds <[facility] 02/08/18 09:36> - Routine Skin Exam Present: dry, warm <[facility] 02/08/18 09:36> - Routine Neurological Exam Present: alert, oriented X3 <[facility] 02/08/18 09:36> - Routine Psychiatric Exam Present: cooperative <[facility] 02/08/18 09:36> Assessment and Plan - Assessment (1) Pneumonia Code(s): J18.9 - Pneumonia, unspecified organism Status: Acute (2) COPD (chronic obstructive pulmonary disease) Code(s): J44.9 - Chronic obstructive pulmonary disease, unspecified Status: Acute (3) Hypothyroid Code(s): E03.9 - Hypothyroidism, unspecified Status: Acute (4) Depression Code(s): F32.9 - Major depressive disorder, single episode, unspecified Status : Acute (5) HLD (hyperlipidemia) Code(s): E78.5 - Hyperlipidemia, unspecified Status: Acute (6) Atrial fibrillation with RVR Code(s): I48.91 - Unspecified atrial fibrillation Status: Acute (7) Atrial flutter Code(s): I48.92 - Unspecified atrial flutter Status: Acute <GlezThomas - 02/08/18 15:56> (1) Pneumonia Code(s): J18.9 - Pneumonia, unspecified organism Status: Acute Plan: Cont iv antibiotics, Bronchodilators, oxygen support Pulm following (2) COPD (chronic obstructive pulmonary disease) Code(s): J44.9 - Chronic obstructive pulmonary disease, unspecified Status: Acute Plan: Pulm following, Bronchodilators, oxygen support. (3) Hypothyroid Code(s): E03.9 - Hypothyroidism, unspecified Status: Acute Plan: Cont home med's (4) Depression Code(s): F32.9 - Major depressive disorder, single episode, unspecified Status : Acute Plan: Mood stable, cont home medication. (5) HLD (hyperlipidemia) Code(s): E78.5 - Hyperlipidemia, unspecified Status: Acute Plan: Cont home medication (6) Atrial fibrillation with RVR Code(s): I48.91 - Unspecified atrial fibrillation Status: Acute (7) Atrial flutter Code(s): I48.92 - Unspecified atrial flutter Status: Acute <Aruna Johnson - 02/08/18 09:30> - Assessment and Plan 02/08/18- She is in ICU, Cardizem drip Dc, she is in SR, Very sob, has some audible wheezes, cont w/ oxygen support. She has thick secretions, will add Mucinex. Will transfer off unit to medical floor. Have PT eval. She want to go home, she does not want rehab. Cont coarse per Pulmonary. She does have home o2. <Aruna Johnson - 02/08/18 09:36> <Aruna Johnson - Last Filed: 02/08/18 09:30> (1) Pneumonia Qualifiers: Pneumonia type: due to unspecified organism Laterality: left Lung location: unspecified part of lung Qualified Code(s): J18.9 - Pneumonia, unspecified organism <Thomas Glez - Last Filed: 02/08/18 15:56> (1) Pneumonia Qualifiers: Pneumonia type: due to unspecified organism Laterality: left Lung location: unspecified part of lung Qualified Code(s): J18.9 - Pneumonia, unspecified organism <Aruna Johnson - Last Filed: 02/08/18 09:30> (1) Pneumonia Qualifiers: Pneumonia type: due to unspecified organism Laterality: left Lung location: unspecified part of lung Qualified Code(s): J18.9 - Pneumonia, unspecified organism <Thomas Glez - Last Filed: 02/08/18 15:56> (1) Pneumonia Qualifiers: Pneumonia type: due to unspecified organism Laterality: left Lung location: unspecified part of lung Qualified Code(s): J18.9 - Pneumonia, unspecified organism
[2018-02-08] MEDS ORDERED: guaiFENesin 600 MG ER Tablet PO ONE (10:00)
[2018-02-08] MEDS: Azithromycin Inj 500 MG in Sodium Chlor 0.9% Inj 250 ML IV.SIG SCH (17:55)
--- NOTE | 2018-02-08 20:11 | P.PNPL ---
Subjective Interval history: 77 YOWF with COPD,AF with RVR, Pn Breathing betetr but gets sob and techycardiac with any activity No CP No Palpitations Physical Exam Vital signs: Vital Signs 02/07/18 21:00 02/07/18 21:14 02/07/18 21:44 Temperature Pulse Rate 86 Respiratory Rate 25 H 24 22 Blood Pressure 118/67 Pulse Oximetry 95 02/07/18 22:00 02/07/18 23:00 02/08/18 00:00 Temperature 97.5 F L Pulse Rate 78 102 H 73 Respiratory Rate 22 22 24 Blood Pressure 114/56 L 101/50 L 101/50 L Pulse Oximetry 97 94 L 95 02/08/18 01:00 02/08/18 02:00 02/08/18 03:00 Temperature Pulse Rate 70 69 67 Respiratory Rate 16 16 16 Blood Pressure 108/50 L 100/51 L Pulse Oximetry 94 L 94 L 02/08/18 04:00 02/08/18 04:38 02/08/18 06:00 Temperature 98.4 F 98.8 F Pulse Rate 94 H 72 81 Respiratory Rate 22 22 22 Blood Pressure 114/64 114/72 124/59 L Pulse Oximetry 94 L 94 L 02/08/18 07:52 02/08/18 08:00 02/08/18 08:11 Temperature 98.2 F Pulse Rate 88 96 H Respiratory Rate 18 20 23 Blood Pressure 131/65 Pulse Oximetry 94 L 95 02/08/18 09:00 02/08/18 10:00 02/08/18 11:00 Temperature Pulse Rate 90 84 96 H Respiratory Rate 24 20 12 Blood Pressure 125/57 L 115/54 L 110/57 L Pulse Oximetry 02/08/18 12:00 02/08/18 12:59 02/08/18 13:00 Temperature 98.6 F Pulse Rate 92 H 78 Respiratory Rate 15 19 Blood Pressure 130/63 124/72 Pulse Oximetry 02/08/18 13:50 02/08/18 14:00 02/08/18 15:00 Temperature Pulse Rate 86 88 82 Respiratory Rate 20 15 21 Blood Pressure 124/64 Pulse Oximetry 02/08/18 16:00 02/08/18 17:00 02/08/18 17:01 Temperature Pulse Rate 80 94 H 94 H Respiratory Rate 16 15 16 Blood Pressure 180/73 H Pulse Oximetry 02/08/18 17:03 02/08/18 17:51 02/08/18 18:00 Temperature 98.8 F Pulse Rate 88 86 Respiratory Rate 21 28 H Blood Pressure 157/79 H Pulse Oximetry 02/08/18 19:00 02/08/18 19:28 Temperature Pulse Rate 90 Respiratory Rate 20 Blood Pressure Pulse Oximetry 96 Intake & Output 02/08/18 02/08/18 02/09/18 06:59 18:59 06:59 Intake Total 570 / 570 550 / 550 Output Total 400 / 400 Balance 170 / 170 550 / 550 Weight 79.2 kg Intake: IV 450 / 450 Azithromycin Inj 500 MG In NS 250 / 250 Inj 250 ML @ 250 mls/hr IV.SIG Q24H SIMON Rx#:[id number] Rocephin Inj 1,000 MG In NS Inj 200 / 200 100 ML @ 200 mls/hr IV.SIG Q12H SIMON Rx#:[id number] Oral 120 / 120 550 / 550 Output: Urine 400 / 400 Other: Date of Last Bowel Movement 02/08/18 # Bowel Movements 0 GENERAL: Elderly WF, mild sob SKIN: Warm and dry. HEAD: Normocephalic. EYES: No scleral icterus. No injection or drainage. NECK: Supple, trachea midline. No JVD or lymphadenopathy. CARDIOVASCULAR: Regular rate and rhythm without murmurs, gallops, or rubs. RESPIRATORY: Breath sounds equal bilaterally. No accessory muscle use. GASTROINTESTINAL: Abdomen soft, non-tender, nondistended. MUSCULOSKELETAL: No cyanosis, or edema. BACK: Nontender without obvious deformity. No CVA tenderness. Assessment and Plan - Plan IMPRESSION: COPD Pneumonia AF with RVR Anxiety PLAN: IV Solumedrol Aerosol nebs Cont Abx Supplement 02 Cardiazem for rate controll.
[2018-02-09] MEDS: MethylPREDNISolone Sod Succinate Inj 40 MG/ML Vial IV.PUSH SCH ×3 (01:12→17:27)
[2018-02-09] MEDS: Pantoprazole Sodium 20 MG DR Tablet PO SCH (08:57)
[2018-02-09] MEDS: LEFLUNOMIDE 20 MG PO SCH (08:58)
[2018-02-09] MEDS: Levothyroxine 112 MCG Tablet PO SCH (08:58)
[2018-02-09] MEDS: Budesonide-Formoterol 160/4.5 MCG 6 GM Inhaler INH SCH ×2 (08:58→20:47)
--- NOTE | 2018-02-09 10:53 | P.PNFP ---
Subjective Interval history: Still in icu. breathing better today HR controlled, Denies Cp, palpations Voices she needs to have BM Results - Labs Result diagrams: 02/05/18 06:05 02/07/18 04:45 Physical Exam Vital signs: Vital Signs 02/08/18 11:00 02/08/18 12:00 02/08/18 12:59 Temperature 98.6 F Pulse Rate 96 H 92 H Respiratory Rate 12 15 Blood Pressure 110/57 L 130/63 Pulse Oximetry 02/08/18 13:00 02/08/18 13:50 02/08/18 14:00 Temperature Pulse Rate 78 86 88 Respiratory Rate 19 20 15 Blood Pressure 124/72 124/64 Pulse Oximetry 02/08/18 15:00 02/08/18 16:00 02/08/18 17:00 Temperature Pulse Rate 82 80 94 H Respiratory Rate 21 16 15 Blood Pressure Pulse Oximetry 02/08/18 17:01 02/08/18 17:03 02/08/18 17:51 Temperature 98.8 F Pulse Rate 94 H 88 Respiratory Rate 16 21 Blood Pressure 180/73 H 157/79 H Pulse Oximetry 02/08/18 18:00 02/08/18 19:00 02/08/18 19:28 Temperature Pulse Rate 86 118 H Respiratory Rate 28 H 20 Blood Pressure Pulse Oximetry 96 02/08/18 20:00 02/08/18 20:34 02/08/18 21:38 Temperature 99 F Pulse Rate 94 H 82 Respiratory Rate 22 22 27 H Blood Pressure 135/62 Pulse Oximetry 94 L 93 L 02/09/18 00:00 02/09/18 00:26 02/09/18 04:00 Temperature 97.8 F 98 F Pulse Rate 75 80 84 Respiratory Rate 18 16 Blood Pressure 130/54 L 158/79 H Pulse Oximetry 94 L 02/09/18 07:29 02/09/18 08:00 02/09/18 08:57 Temperature 98.2 F Pulse Rate 94 H 102 H Respiratory Rate 20 19 16 Blood Pressure 167/83 H Pulse Oximetry 93 L 94 L Intake & Output 02/08/18 02/09/18 02/09/18 18:59 06:59 18:59 Intake Total 600 / 600 620 / 620 Output Total 400 / 400 Balance 600 / 600 220 / 220 Weight 80.4 kg Intake: IV 50 / 50 500 / 500 Azithromycin Inj 500 MG In NS 250 / 250 Inj 250 ML @ 250 mls/hr IV.SIG Q24H SIMON Rx#:[id number] Rocephin Inj 1,000 MG In NS Inj 50 / 50 250 / 250 100 ML @ 200 mls/hr IV.SIG Q12H SIMON Rx#:[id number] Oral 550 / 550 120 / 120 Output: Urine 400 / 400 Other: Date of Last Bowel Movement 02/08/18 02/08/18 # Bowel Movements 1 - Constitutional no acute distress, cooperative - Routine HEENT Exam ENT: Present: mucous membranes moist - Routine Respiratory Exam Present: wheezes - Routine Cardiovascular Exam Present: S1, S2 - Routine Abdominal Exam Present: soft, normoactive bowel sounds - Routine Skin Exam Present: dry, warm - Routine Neurological Exam Present: alert, oriented X3 - Routine Psychiatric Exam Present: cooperative Assessment and Plan - Assessment (1) Pneumonia Code(s): J18.9 - Pneumonia, unspecified organism Status: Acute Plan: Cont iv antibiotics, Bronchodilators, oxygen support Pulm following (2) COPD (chronic obstructive pulmonary disease) Code(s): J44.9 - Chronic obstructive pulmonary disease, unspecified Status: Acute Plan: Pulm following, Bronchodilators, solu- medrol oxygen support. (3) Hypothyroid Code(s): E03.9 - Hypothyroidism, unspecified Status: Acute Plan: Cont home med's (4) Depression Code(s): F32.9 - Major depressive disorder, single episode, unspecified Status : Acute Plan: Mood stable, cont home medication. (5) HLD (hyperlipidemia) Code(s): E78.5 - Hyperlipidemia, unspecified Status: Acute Plan: Cont home medication (6) Atrial fibrillation with RVR Code(s): I48.91 - Unspecified atrial fibrillation Status: Acute (7) Atrial flutter Code(s): I48.92 - Unspecified atrial flutter Status: Acute - Assessment and Plan 02/08/18- She is in ICU, Cardizem drip Dc, she is in SR, Very sob, has some audible wheezes, cont w/ oxygen support. She has thick secretions, will add Mucinex. Will transfer off unit to medical floor. Have PT eval. She want to go home, she does not want rehab. Cont coarse per Pulmonary. She does have home o2. 02/09/18-She is breathing better today, does cont to have exp wheezes. Wants to go home. Transfer to medical floor, she is on Solu medrol q8, will have nurse to call pulmonary to switch to PO prednisone to prepare for home. She is afebrile. SR on monitor. She denies Cp, SOB. Will get cxr, fu pna. Tentatively dc tomorrow if ok with pulmonary, Cardiology. (1) Pneumonia Qualifiers: Pneumonia type: due to unspecified organism Laterality: left Lung location: unspecified part of lung Qualified Code(s): J18.9 - Pneumonia, unspecified organism
--- NOTE | 2018-02-09 11:16 | XR ---
EXAM DATE: 02/09/2018 11:10 AM EST AGE/SEX: 77 years / Female INDICATIONS: Dyspnea. CLINICAL DATA: This is the patient's initial encounter. Patient reports that signs and symptoms have been present for 1 day and indicates a pain score of 0/10. MEDICAL/SURGICAL HISTORY: Chronic obstructive pulmonary disease. Rheumatoid arthritis. Hyperc holesterolemia. A-fib. GERD. Diabetes. Hypothyroidism. Appendectomy. Cholecystectomy. Cardiac cath . COMPARISON: [facility], CHEST 1V SINGLE AP, 02/04/2018. . FINDINGS: There has been moderate improvement with the patchy infiltrate noted in the left upper lung on the pr ior examination. The infiltrate appears to be resolving but is not completely resolved at this point. There continues to be some increased interstitial markings bilaterally which may represent some jeffry a. There is small bilateral pleural effusions. The heart size is stable. The bony structures are stab le. CONCLUSION: 1. There has been moderate improvement with the previously noted patchy infiltrate in the left upper lung. 2. There is increased interstitial markings bilaterally with small bilateral effusions suggestive of pulmonary edema. Electronically signed by: Arcenio Knight MD Board Certified Radiologist 02/09/2018 11:15 AM EST
[2018-02-09 11:20] LABS: Hematocrit 32.7 % (35.0-46.0); Hemoglobin 10.4 gm/dL (11.6-15.3); Mean Corpuscular HGB Conc 31.8 % (32.0-36.0); Mean Corpuscular Hemoglobin 30.3 pg (27.0-34.0); Mean Corpuscular Volume 95.2 fL (80.0-100.0); Mean Platelet Volume 8.4 fL (7.0-11.0); Platelet Count 407 th/mm3 (150-450); Potassium 4.1 meq/L (3.5-5.1); Red Blood Count 3.44 mil/mm3 (4.00-5.30); Red Cell Distribution Width 14.4 % (11.6-17.2); White Blood Count 13.8 th/mm3 (4.0-11.0)
[2018-02-09 11:23] LABS: Carbon Dioxide 28.2 meq/L (21.0-32.0)
[2018-02-09 14:08] VITALS: TEMP 97.9
--- NOTE | 2018-02-09 16:52 | P.PNPL ---
Subjective Interval history: 77 YOWF with COPD,AF with RVR, Pn Breathing better No CP No Palpitations On po cardiazem Physical Exam Vital signs: Vital Signs 02/08/18 17:00 02/08/18 17:01 02/08/18 17:03 Temperature Pulse Rate 94 H 94 H 88 Respiratory Rate 15 16 21 Blood Pressure 180/73 H 157/79 H Pulse Oximetry 02/08/18 17:51 02/08/18 18:00 02/08/18 19:00 Temperature 98.8 F Pulse Rate 86 118 H Respiratory Rate 28 H 20 Blood Pressure Pulse Oximetry 02/08/18 19:28 02/08/18 20:00 02/08/18 20:34 Temperature 99 F Pulse Rate 94 H 82 Respiratory Rate 22 22 Blood Pressure 135/62 Pulse Oximetry 96 94 L 93 L 02/08/18 21:38 02/09/18 00:00 02/09/18 00:26 Temperature 97.8 F Pulse Rate 75 80 Respiratory Rate 27 H 18 Blood Pressure 130/54 L Pulse Oximetry 94 L 02/09/18 04:00 02/09/18 07:29 02/09/18 08:00 Temperature 98 F 98.2 F Pulse Rate 84 94 H 88 Respiratory Rate 16 20 19 Blood Pressure 158/79 H 167/83 H Pulse Oximetry 93 L 94 L 02/09/18 08:57 02/09/18 12:00 02/09/18 13:00 Temperature 97.9 F Pulse Rate 88 84 Respiratory Rate 16 21 19 Blood Pressure Pulse Oximetry 02/09/18 14:00 02/09/18 15:01 Temperature Pulse Rate 84 93 H Respiratory Rate 14 20 Blood Pressure Pulse Oximetry Intake & Output 02/08/18 02/09/18 02/09/18 18:59 06:59 18:59 Intake Total 600 / 600 620 / 620 Output Total 400 / 400 Balance 600 / 600 220 / 220 Weight 80.4 kg Intake: IV 50 / 50 500 / 500 Azithromycin Inj 500 MG In NS 250 / 250 Inj 250 ML @ 250 mls/hr IV.SIG Q24H [facility]ON Rx#:[id number] Rocephin Inj 1,000 MG In NS Inj 50 / 50 250 / 250 100 ML @ 200 mls/hr IV.SIG Q12H SIMON Rx#:[id number] Oral 550 / 550 120 / 120 Output: Urine 400 / 400 Other: Date of Last Bowel Movement 02/08/18 02/08/18 # Bowel Movements 1 GENERAL: Elderly WF nAD SKIN: Warm and dry. HEAD: Normocephalic. EYES: No scleral icterus. No injection or drainage. NECK: Supple, trachea midline. No JVD or lymphadenopathy. CARDIOVASCULAR: Regular rate and rhythm without murmurs, gallops, or rubs. RESPIRATORY: Breath sounds equal bilaterally. No accessory muscle use. GASTROINTESTINAL: Abdomen soft, non-tender, nondistended. MUSCULOSKELETAL: No cyanosis, or edema. BACK: Nontender without obvious deformity. No CVA tenderness. Assessment and Plan - Plan IMPRESSION: COPD Pneumonia AF with RVR Anxiety PLAN: IV Solumedrol Aerosol nebs Cont Abx Supplement 02 Cardiazem for rate controll. Stable from Pulm standpoint DC plans for home She will FU with
[2018-02-09] MEDS: Azithromycin Inj 500 MG in Sodium Chlor 0.9% Inj 250 ML IV.SIG SCH (18:29)
[2018-02-09] MEDS: dilTIAZem 30 MG Tablet PO SCH (21:30)
[2018-02-09] MEDS: Butalbital/APAP/Caff 50/325/40 MG Tablet PO PRN (21:32)
[2018-02-10] MEDS: MethylPREDNISolone Sod Succinate Inj 40 MG/ML Vial IV.PUSH SCH ×2 (02:13→08:32)
[2018-02-10] MEDS: Pantoprazole Sodium 20 MG DR Tablet PO SCH (08:31)
[2018-02-10] MEDS: dilTIAZem 30 MG Tablet PO SCH (08:31)
[2018-02-10] MEDS: Budesonide-Formoterol 160/4.5 MCG 6 GM Inhaler INH SCH (08:31)
[2018-02-10] MEDS: Levothyroxine 112 MCG Tablet PO SCH (08:32)
[2018-02-10] MEDS: LEFLUNOMIDE 20 MG PO SCH (08:33)
[2018-02-10 08:41] VITALS: O2SAT 95
[2018-02-10] MEDS: Butalbital/APAP/Caff 50/325/40 MG Tablet PO PRN (10:03)
[2018-02-10 11:27] VITALS: BP 168/85; PULSE 92
[2018-02-10 12:29] VITALS: RESP 20
--- NOTE | 2018-02-10 12:43 | P.DS ---
Date of admission: 02/04/18 17:27 Primary care physician: Thomas Glez DO Attending physician on discharge: Thomas Glez Anticipated date of discharge: 02/10/18 Brief History from admission: 77 year old female with history of COPD, on home oxygen at . Admits for complaints of increased SOB, and fever for past 3days requiring more use of her O2. She is followed by Pulmonary Dr Noyola and she voices she has seen him this past week. She voices she has had Prevnar PNA vaccine. Patient update on day of discharge: She denies SOB or HICKEY and has been cleared for D/C home per Pulm and Cards. She will F/U as scheduled. DS: Diagnosis - Discharge Diagnosis (1) Pneumonia Status: Acute Diagnosis: Principal (2) COPD (chronic obstructive pulmonary disease) Status: Acute Diagnosis: Principal (3) Atrial fibrillation with RVR Status: Acute Diagnosis: Secondary DS: Medications - Discharge Medications Prescriptions: apixaban [Eliquis] 5 mg PO BID #60 tab cefuroxime axetil 500 mg PO Q12HR 5 Days #10 tab prednisone 10 mg PO TID #30 tab DS: Summary Hospital Course: Presented with COPD exacerbation and PNA with AF. She was started on antibiotics and was seen been Pulm and Cards. She was started on anticoag meds per Cards and was treated with steroids and antibiotics per Pulm and is now cleared for D/C home with F/U as arranged. - Time Spent with Patient Total time spent providing and/or coordinating discharge services: Greater than 30 minutes - Quality: AMI Clinical Trial Participant: No - Quality: VTE Deep Vein Thrombosis/Pulmonary Embolism Present on Admission: No Exam Vital signs: Vital Signs 02/09/18 13:00 02/09/18 14:00 02/09/18 15:00 Temperature 97.9 F Pulse Rate 84 84 90 Respiratory Rate 19 14 21 Blood Pressure Pulse Oximetry 02/09/18 15:01 02/09/18 16:00 02/09/18 17:00 Temperature Pulse Rate 93 H 96 H 96 H Respiratory Rate 20 18 21 Blood Pressure Pulse Oximetry 02/09/18 18:00 02/09/18 18:41 02/09/18 18:44 Temperature Pulse Rate 92 H 100 H 100 H Respiratory Rate 28 H 23 36 H Blood Pressure 202/100 H 183/101 H Pulse Oximetry 02/09/18 19:18 02/09/18 20:00 02/09/18 20:47 Temperature Pulse Rate 93 H 108 H Respiratory Rate 16 16 Blood Pressure Pulse Oximetry 96 96 02/09/18 21:30 02/09/18 22:00 02/09/18 23:00 Temperature Pulse Rate 94 H 90 Respiratory Rate 14 16 16 Blood Pressure 156/75 H 143/70 H Pulse Oximetry 96 96 02/10/18 00:00 02/10/18 03:00 02/10/18 04:00 Temperature Pulse Rate 92 H 92 H 92 H Respiratory Rate 20 21 Blood Pressure 159/73 H Pulse Oximetry 96 02/10/18 05:00 02/10/18 06:00 02/10/18 07:00 Temperature Pulse Rate 92 H 108 H 89 Respiratory Rate 28 H 26 H 18 Blood Pressure 118/63 Pulse Oximetry 96 02/10/18 07:01 02/10/18 07:35 02/10/18 07:36 Temperature Pulse Rate 124 H 108 H Respiratory Rate 42 H 20 Blood Pressure Pulse Oximetry 94 L 02/10/18 08:00 02/10/18 08:24 02/10/18 08:31 Temperature Pulse Rate 110 H 110 H Respiratory Rate 24 18 18 Blood Pressure 159/80 H Pulse Oximetry 95 02/10/18 09:00 02/10/18 09:05 02/10/18 10:00 Temperature Pulse Rate 102 H 100 H Respiratory Rate 22 20 18 Blood Pressure 181/89 H 163/84 H Pulse Oximetry 02/10/18 11:00 02/10/18 12:00 Temperature Pulse Rate 92 H 92 H Respiratory Rate 25 H Blood Pressure 168/85 H Pulse Oximetry Intake & Output 02/09/18 02/10/18 02/10/18 18:59 06:59 18:59 Intake Total 240 / 240 350 / 350 100 / 100 Balance 240 / 240 350 / 350 100 / 100 Weight 82 kg Intake: IV 350 / 350 100 / 100 Azithromycin Inj 500 MG In NS 250 / 250 Inj 250 ML @ 250 mls/hr IV.SIG Q24H SIMON Rx#:[id number] Rocephin Inj 1,000 MG In NS Inj 100 / 100 100 / 100 100 ML @ 200 mls/hr IV.SIG Q12H SIMON Rx#:[id number] Oral 240 / 240 Other: # Voids 3 3 Date of Last Bowel Movement 02/09/18 02/09/18 02/09/18 - Constitutional no acute distress - Routine HEENT Exam Head: Present: normocephalic, atraumatic ENT: Present: mucous membranes moist - Routine Neck Exam Present: supple, full ROM - Routine Respiratory Exam Present: CTA bilaterally - Routine Cardiovascular Exam Present: RRR, S1, S2 - Routine Abdominal Exam Present: soft, normoactive bowel sounds - Routine Extremities Exam Present: full ROM - Routine Skin Exam Present: intact - Routine Neurological Exam Present: alert, oriented X3 Results Procedures completed during hospitalization: none - Impressions ITS Impressions Chest X-Ray 02/09/18 00:00 CONCLUSION: 1. There has been moderate improvement with the previously noted patchy infiltrate in the left upper lung. 2. There is increased interstitial markings bilaterally with small bilateral effusions suggestive of pulmonary edema. Discharge Plan - Discharge Disposition Patient Disposition: 01 Discharge Home - Discharge Condition Condition: Good - Discharge Order Discharge Orders: Discharge Order (Routine); Ordered 02/10/18 Ordered By: Roberto Jones ED Use Only Admit Order (Routine); Ordered 02/04/18 Ordered By: Alessia Vasquez - Discharge Details Anticipated Discharge Date: 02/10/18 - Physicians Team Primary Care Provider: Thomas Glez Attending Provider: Thomas Glez Other Providers: Brennen Hutton MD ; Dani Bonner MD ; Franco Ludwig MD
[2018-02-10] MEDS ORDERED: predniSONE 10 MG Tablet PO SCH (13:00)
== END 2018-02-10 13:10 | disposition home or self-care (01) | DRG 194 ==
LOC: PHEFT 15:40 → PHEDA 17:27 → PH3 18:55 → PHICU 02-05 18:25
PROVIDERS: ADMIT Family Medicine; ATTEND Family Medicine
DX: K21.9 Gastro-esophageal reflux disease without esophagitis; E78.5 Hyperlipidemia, unspecified; J44.1 Chronic obstructive pulmonary disease with (acute) exacerbation; Z79.890 Hormone replacement therapy; M06.9 Rheumatoid arthritis, unspecified; J18.9 Pneumonia, unspecified organism; J44.0 Chronic obstructive pulmonary disease with (acute) lower respiratory infection; E78.00 Pure hypercholesterolemia, unspecified; Z90.49 Acquired absence of other specified parts of digestive tract; Z79.899 Other long term (current) drug therapy; J96.11 Chronic respiratory failure with hypoxia; I48.91 Unspecified atrial fibrillation; Z23 Encounter for immunization; I48.92 Unspecified atrial flutter; F32.9 Major depressive disorder, single episode, unspecified; I10 Essential (primary) hypertension; I47.1 Supraventricular tachycardia; Z87.891 Personal history of nicotine dependence; E11.9 Type 2 diabetes mellitus without complications; F41.9 Anxiety disorder, unspecified; Z99.81 Dependence on supplemental oxygen; E03.9 Hypothyroidism, unspecified
CPT/HCPCS: 71010; 71045; 80048; 80053; 84443; 84484; 85025; 85027; 87040; 87275; 87276; 87804; 90658; 90686; 90765; 90775; 93005; 93306; 94640; 94664; 94665; 96365; 96375; 97110; 97116; 97162; 99285; J0456; J0696; J2270; J2920; J7030; J7050; J7506; J7512; Q2038